=== PATIENT | female | born 1960 | race African-American/Black ===

== ENCOUNTER 2017-05-10 20:11 | Inpatient (IN) | payer OTHER ==
[2017-05-10] VITALS (11 sets, daily range): BP systolic 151–242; BP diastolic 71–138; PULSE 65–124; RESP 16–18; TEMP 97.9–98; O2SAT 95–99
[2017-05-10] MEDS ORDERED: SODIUM CHLOR 0.9% 1000 ML INJ 1,000 ML IV SCH (20:15)
[2017-05-10] MEDS ORDERED: LORazepam 2 MG/ML VIAL ONE (20:20)
[2017-05-10] MEDS ORDERED: niCARdipine INJ 25 MG in SODIUM CHLOR 0.9% 250 ML INJ 240 ML IV PRN ×2 (20:30→21:00)
[2017-05-10] MEDS ORDERED: LORazepam 2 MG/ML VIAL IV PUSH ONE ×2 (20:30→22:15)
[2017-05-10] MEDS ORDERED: IOHEXOL 350 MG/ML 10 ML VIAL (for RAD DIAG) IVCONTRAST ONE (20:32)
--- NOTE | 2017-05-10 20:35 | PD ---
HPI Chief Complaint: Stroke Alert Time Seen by Provider: 20:13 Travel History International Travel<30 days: No Contact w/Intl Traveler<30days: No (the patient's travel history is unable to be obtained.) History of Present Illness HPI The patient is a 50 year old female who presents to the [facility] emergency department with a history of expressive aphasia that began sometime prior to arrival. According to ambulance services the patient was last seen normal by her neighbors in her hotel at approximately 1900. The patient arrives approximately an hour after last being seen normal. The patient was noted to have a right facial droop. The patient had a blood sugar prior to arrival of 86. The patient was noted to be hypertensive with a blood pressure 230/136. The patient was not following commands, however she was spontaneously moving all extremities equally with 5 over 5 strength. As the patient has an expressive aphasia, no history is able to be obtained from the patient. Ambulance services had no other history for this patient. The patient was brought in under a [facility]. [facility] Past Medical History Narrative Medical The Patient's past medical history is unable to be obtained. Past Surgical History Narrative Surgical The patient's past surgical history is unable to be obtained. Social History Narrative Social History The patient's social history is unable to be obtained, however the patient does have a pack of cigarettes noted to be on her person. Alcohol Use: No Tobacco Use: Yes Substance Use: No Allergies-Medications (Allergen,Severity, Reaction): Coded Allergies: No Known Allergies (Unverified , 05/10/17) Reported Meds & Prescriptions Reported Meds & Active Scripts Active Active Prescriptions or Reported Medications Unobtainable Review of Systems ROS Limitations: Altered Mental Status, Speech Impaired, Poor Historian Neurologic: Positive: Weakness, Focal Abnormalities, Change in Mentation, Slurred Speech (expressive aphasia) Physical Exam Narrative General: The patient is a well-developed well-nourished female in no acute distress, on arrival is noted to be looking around the room, spontaneously moving all extremities, however not following any commands. Head and Neck exam: Head is normocephalic atraumatic. Eyes: Extra ocular motion testing is unable to be accomplished in this patient who is not following commands. Are equal round and reactive to light. Nose: Midline septum with pink mucous membranes Mouth: Dentition unremarkable. Moist mucus membranes. Posterior oropharynx is not able to be visualized as patient is clenching her mouth shut. Neck: No palpable lymphadenopathy. No nuchal rigidity. No thyromegaly. Cardiovascular: Regular rate and rhythm without murmurs, gallops, or rubs. No pulse deficit to the extremities on simultaneous auscultation and palpation of her radial artery. Lungs: Clear to auscultation bilaterally. No wheezes, rhonchi, or rales. Abdomen: Soft, without tenderness to palpation in all 4 quadrants of the abdomen. No guarding, rebound, or rigidity. Normal bowel sounds are audible. No tenderness on palpation of McBurney's point. Extremities: No clubbing, cyanosis, or edema. 2+ pulses in all 4 extremities. Back: No costovertebral angle tenderness to palpation. Neurologic Exam: The patient has a right-sided facial droop noted. The patient is uncooperative with formal neurologic testing, however she is moving has her eyes open and is moving her eyes with conjugate gaze around the room area she is spontaneously moving all extremities with 5 over 5 strength. She does have intact sensation over all dermatomes on examination. She is nonverbal. She adamantly will make sounds Skin Exam: No rash noted. Intact skin that is warm and dry. Data Data Last Documented VS Vital Signs Date Time Temp Pulse Resp B/P (MAP) Pulse Ox O2 Delivery O2 Flow Rate FiO2 05/10/17 20:15 93 100 Nasal Cannula 2.00 05/10/17 20:15 18 05/10/17 20:11 98.0 234/138 (170) Orders Orders Diet Npo (05/11/17 Breakfast) Activity Bed Rest (05/10/17 ) Electrocardiogram (05/10/17 ) I-Stat Creatinine (05/10/17 20:14) I-Stat Profile (05/10/17 20:14) Prothrombin Time / Inr (Pt) (05/10/17 20:14) Act Partial Throm Time (Ptt) (05/10/17 20:14) Complete Blood Count With Diff (05/10/17 20:14) Fibrinogen (05/10/17 20:14) Creatine Kinase (Cpk) (05/10/17 20:14) Troponin I (05/10/17 20:14) Ua Includes Microscopic (05/10/17 20:14) Type And Screen (05/10/17 20:14) Ct Brain W/O Iv Contrast(Rout) (05/10/17 ) Cta Brain W Iv Contrast W 3d (05/10/17 20:14) Cta Neck W Iv Contrast W 3d (05/10/17 20:14) Beta Hcg (Quant/Titer) (05/10/17 20:14) Consult Neurology (05/10/17 ) Blood Glucose (05/10/17 20:14) Ecg Monitoring (05/10/17 20:14) Neuro Checks Q2HX12,Q4H (05/10/17 20:14) Nursing Bedside Swallow Assess .ONCE (05/10/17 20:14) Iv Access Insert/Monitor (05/10/17 20:14) NPO (05/10/17 20:14) Oximetry (05/10/17 20:14) Oxygen Administration (05/10/17 20:14) Resp Oxygen Shyam C Titrat 1-4 L (05/10/17 20:14) Cath For Specimen (05/10/17 20:14) Sodium Chlor 0.9% 1000 Ml Inj (Ns 1000 M (05/10/17 20:15) Nicardipine Inj (Cardene Inj) (05/10/17 20:19) Lorazepam Inj (Ativan Inj) (05/10/17 20:20) Lorazepam Inj (Ativan Inj) (05/10/17 20:30) Nicardipine Inj (Cardene Inj) (05/10/17 20:30) Iohexol 350 Inj (Omnipaque 350 Inj) (05/10/17 20:32) Levetiracetam Inj (Keppra Inj) (05/10/17 20:45) Admit Order (Ed Use Only) (05/10/17 20:48) Consult Neurosurgery (05/10/17 ) Admit To Inpatient (05/10/17 ) Code Status (05/10/17 20:48) Vital Signs (Adult) GELY.Q1H (05/10/17 20:48) Activity Bed Rest (05/10/17 20:48) Elevate Head Of Bed (05/10/17 20:48) Neuro Checks . ORDERED (05/10/17 20:48) Sodium Chlor 0.9% 1000 Ml Inj (Ns 1000 M (05/10/17 20:48) Sodium Chloride 0.9% Flush (Ns Flush) (05/10/17 21:00) Sodium Chloride 0.9% Flush (Ns Flush) (05/10/17 21:00) Acetaminophen (Tylenol) (05/10/17 21:00) Morphine Inj (Morphine Inj) (05/10/17 21:00) Famotidine Inj (Pepcid Inj) (05/10/17 21:00) Famotidine (Pepcid) (05/10/17 21:00) Lorazepam Inj (Ativan Inj) (05/10/17 21:00) Albuterol-Ipratropium Neb (Duoneb Neb) (05/10/17 21:00) Complete Blood Count With Diff (05/11/17 04:00) Comprehensive Metabolic Panel (05/11/17 04:00) Prothrombin Time / Inr (Pt) (05/11/17 04:00) Magnesium (Mg) (05/11/17 04:00) Phosphorus (Po4) (05/11/17 04:00) Pt Request For Service (05/10/17 20:48) Buckle And Button Maker / Telemetry GELY.Q8H (05/10/17 20:48) Pharmacologic Contraindication (05/10/17 20:48) ^ Initiate Protocol (05/10/17 20:48) Instruction (05/10/17 20:48) [facility] Nursing Information (05/10/17 21:00) Chlorhexidine 2% Cloth (Chlorhexidine 2% (05/11/17 04:00) Chlorhexidine 2% Cloth (Chlorhexidine 2% (05/10/17 21:00) Mrsa Pcr Surveillance (05/10/17 20:48) Docusate Sodium-Senna (Edelmira-Colace) (05/10/17 21:00) Magnesium Hydroxide Liq (Milk Of Magnesi (05/10/17 21:00) Sennosides (Senokot) (05/10/17 21:00) Bisacodyl Supp (Dulcolax Supp) (05/10/17 21:00) Lactulose Liq (Lactulose Liq) (05/10/17 21:00) Inpatient Certification (05/10/17 ) Labs Laboratory Tests Test 05/10/17 20:14 White Blood Count 4.4 TH/MM3 Red Blood Count 3.75 MIL/MM3 Hemoglobin 11.6 GM/DL Bedside Hemoglobin 11.6 G/DL Hematocrit 34.7 % Bedside Hematocrit 34.0 % Mean Corpuscular Volume 92.4 FL Mean Corpuscular Hemoglobin 31.0 PG Mean Corpuscular Hemoglobin Concent 33.6 % Red Cell Distribution Width 13.7 % Platelet Count 216 TH/MM3 Mean Platelet Volume 7.8 FL Neutrophils (%) (Auto) 66.5 % Lymphocytes (%) (Auto) 24.7 % Monocytes (%) (Auto) 6.3 % Eosinophils (%) (Auto) 1.5 % Basophils (%) (Auto) 1.0 % Neutrophils # (Auto) 2.9 TH/MM3 Lymphocytes # (Auto) 1.1 TH/MM3 Monocytes # (Auto) 0.3 TH/MM3 Eosinophils # (Auto) 0.1 TH/MM3 Basophils # (Auto) 0.0 TH/MM3 CBC Comment DIFF FINAL Differential Comment Prothrombin Time 10.0 SEC Prothromb Time International Ratio 1.0 RATIO Activated Partial Thromboplast Time 20.4 SEC Fibrinogen 222 mg/dL Bedside Sodium 141 MMOL/L Bedside Potassium 4.2 MMOL/L Bedside Chloride 105 MMOL/L Bedside Blood Urea Nitrogen 18 MG/DL Bedside Creatinine 0.9 MG/DL Bedside Glucose 100 MG/DL Total Creatine Kinase 180 U/L Troponin I 0.02 NG/ML Human Chorionic Gonadotropin, Quant LESS THAN 1 MIU/ML MDM Medical Screen Exam Complete: Yes Emergency Medical Condition: Yes Medical Record Reviewed: No EKG Prior to Arrival: Yes Differential Diagnosis Ischemic stroke, versus intracranial hemorrhage, versus brain mass Narrative Course During the course of the patients emergency department visit, the patients history, examination, and differential diagnosis were reviewed with the patient. The patient was placed on a director of cardiac cath lab with oximetry and frequent blood pressure monitoring. The patient had IV access obtained and blood work sent for analysis. A stroke alert was called regarding this patient's case at 20:03. A CT scan of the head was ordered along with a CTA of the head and neck given the patient's expressive aphasia and her NIH score of 8. The patient was noted on arrival to have a blood pressure that was elevated in the 230s systolic , therefore the patient was immediately started on a Cardene drip. I accompanied the patient to CT. While in CT, the patient had a witnessed generalized clonic tonic seizure that lasted for approximately 2 minutes. The patient was given Ativan 1 mg IV. The patient was then loaded with Keppra 1 g IV. The patient in CT was noted to have an intracranial hemorrhage on the left side. The neurologist on-call for stroke alerts was notified regarding this. I then spoke to the neurosurgeon on-call regarding this patient's intracranial hemorrhage. He will see the patient consultation. He requested that the patient be admitted to the courtroom clerk service. He recommended blood pressure control of his systolic blood pressure between 110 and 140. The patient was placed on normal saline at 70 mL/h. The patient's head of the bevel be raised to 30. I then spoke to Dr. Hodgson the courtroom clerk on-call regarding this patient's case. He did agree to admit the patient for continued evaluation and treatment. The patients laboratory studies were reviewed and remarkable for a white count of 4.4, hemoglobin 11.6, platelets 216 with a normal differential, i-STAT is within normal limits with a creatinine of 0.9, CPK 180, troponin I 0.02, quantitative beta hCG is less than 1, PT 10, PTT 20.4, fibrinogen 222. Radiology studies were reviewed and remarkable for CTA of the brain showed a normal examination, CTA of the neck showed a normal examination according to the reading radiologist. The patient's intracranial hemorrhage is likely related to a hypertensive bleed. The patient's ECG reveals a sinus tachycardia rate of 101, QRS duration is 98 ms , QTC 402 ms with nonspecific T-wave abnormalities. No acute ST segment elevation. The patients results were discussed with the patient, including the plan of care. I explained that further testing and/ or monitoring is indicated based on the patients history, examination, and/ or laboratory findings. Therefore, I recommended admission for additional evaluation. The patient expressed understanding and was agreeable with this plan. The patient was admitted to the hospital in critical condition and sent to a bed under the care of the courtroom clerk service. Critical Care Narrative Aggregate critical care time was 35 minutes. Time to perform other separately billable procedures was not included in the critical care time. My time did not include minutes spent treating any other patients simultaneously or on activities that did not directly contribute to the patient's treatment. The services I provided to this patient were to treat and/or prevent clinically significant deterioration that could result in: Hypoxic brain injury, versus progressive disability, versus respiratory failure I provided critical care services requiring my management, as noted below: Chart data review, documentation time, medication orders and management, vital sign assessments/reviewing monitor data, ordering and reviewing lab tests, ordering and interpreting/reviewing x-rays and diagnostic studies, care of the patient and discussion of the patient with the admitting physicians. Stroke Alert NIHSS NIH Stroke Scale Result: 8 NIHSS Time Completed: 20:28 Thrombolytic Contraindications Contraindications: CT Intracranial Bleed Physician Communication Physician Communication The patient's case including history, pertinent physical examination findings, and laboratory studies were discussed with Dr. Jane at 8::32PM, Dr. Campbell at 8: 42PM., Dr Hodgson at 8: 45PM. It was agreed that the patient would be admitted to the courtroom clerk's service. Diagnosis Diagnosis: Primary Impression: Intracranial hemorrhage Admitting Physician Requests: Admit Scripts Unable to Obtain Active Prescriptions or Reported Meds Kia Aparicio MD May 10, 2017 20:35
--- NOTE | 2017-05-10 20:36 | RADRPT ---
EXAM DATE/TIME: 05/10/2017 20:19 [facility] COMPARISON: No previous studies available for comparison. INDICATIONS : Stroke alert, altered mental status and right sided facial droop. RADIATION DOSE: 27.95 CTDIvol (mGy) This report was called by myself to Dr. Aparicio at 20: 33 hours MEDICAL HISTORY : Non-responsive. SURGICAL HISTORY : Non-responsive. ENCOUNTER: Initial ACUITY: 1 day PAIN SCALE: Non-responsive LOCATION: Bilateral head TECHNIQUE: Multiple contiguous axial images were obtained of the head. Using automated exposure control and adj ustment of the mA and/or kV according to patient size, radiation dose was kept as low as reasonably a chievable to obtain optimal diagnostic quality images. DICOM format image data is available electro nically for review and comparison. FINDINGS: Approximately 2 cm acute hemorrhage is present in left anterior temporal lobe with slight edema surro unding it and no mass effect. There Is no evidence for intracranial mass effect, mass lesions, or ext ra-axial fluid collections. The visualized bony structures appear intact. The ventricles are normal size for the patient's age. CONCLUSION: Acute hemorrhage left anterior temporal lobe. Lala England MD on May 10, 2017 at 20:31 Board Certified Radiologist. This report was verified electronically.
[2017-05-10 20:43] LABS: AUTOMATED NEUTROPHIL # 2.9 TH/MM3 (1.8-7.7); EOSINOPHIL # 0.1 TH/MM3 (0-0.4); EOSINOPHIL % 1.5 % (0.0-4.0); HEMATOCRIT 34.7 % (35.0-46.0); HEMOGLOBIN 11.6 GM/DL (11.6-15.3); LYMPH % 24.7 % (9.0-44.0); LYMPHOCYTE # 1.1 TH/MM3 (1.0-4.8); MEAN CELL VOLUME 92.4 FL (80.0-100.0); MEAN CORPUSCULAR HGB CONC 33.6 % (32.0-36.0); MEAN PLATELET VOLUME 7.8 FL (7.0-11.0); MONO % 6.3 % (0.0-8.0); MONOCYTE # 0.3 TH/MM3 (0-0.9); NEUT % 66.5 % (16.0-70.0); PLATELET COUNT 216 TH/MM3 (150-450); RED BLOOD COUNT 3.75 MIL/MM3 (4.00-5.30); RED CELL DISTRIBUTION WIDTH 13.7 % (11.6-17.2); WHITE BLOOD COUNT 4.4 TH/MM3 (4.0-11.0)
[2017-05-10] MEDS ORDERED: levETIRAcetam INJ 100 ML IV ONE (20:45)
--- NOTE | 2017-05-10 20:58 | RADRPT ---
EXAM DATE/TIME: 05/10/2017 20:19 [facility] COMPARISON: CT BRAIN W/O CONTRAST, May 10, 2017, 20:19. INDICATIONS : Stroke alert, altered mental status and right sided facial droop. IV CONTRAST: 90 cc Omnipaque 350 (iohexol) IV ; Cumulative dose for multiple exams. RADIATION DOSE: 24.39 CTDIvol (mGy) ; Combined studies MEDICAL HISTORY : Non-responsive. SURGICAL HISTORY : Non-responsive. ENCOUNTER: Initial ACUITY: 1 day PAIN SCALE: Non-responsive LOCATION: Bilateral head TECHNIQUE: Volumetric scanning was performed using a multi-row detector CT scanner. The data was post processed with a variety of visualization algorithms including full volume maximum intensity projection, multi -planar sliding thin slab reformation, curved planar reformation, and surface rendering techniques. Using automated exposure control and adjustment of the mA and/or kV according to patient size, radiat ion dose was kept as low as reasonably achievable to obtain optimal diagnostic quality images. DICO M format image data is available electronically for review and comparison. FINDINGS: There is excellent visualization of the major intracranial arteries out to the second-order branch ve ssels. There is no evidence for aneurysm, vessel truncation or stenosis, and no evidence for vascula r malformation. CONCLUSION: Normal examination. Lala England MD on May 10, 2017 at 20:54 Board Certified Radiologist. This report was verified electronically.
[2017-05-10] MEDS: FAMOTIDINE 20 MG TAB PO SCH (21:00)
[2017-05-10] MEDS ORDERED: LABETALOL HCL 100 MG/20 ML VIAL IV PUSH PRN (21:00)
[2017-05-10] MEDS ORDERED: SENNOSIDES 8.6 MG TAB PO PRN (21:00)
[2017-05-10] MEDS: DOCUSATE SODIUM 50 MG/SENNA 8.6 MG TAB PO SCH (21:00)
[2017-05-10] MEDS ORDERED: BISACODYL 10 MG SUPP RECTAL PRN (21:00)
[2017-05-10] MEDS ORDERED: RESP: ALBUTEROL 2.5 MG/IPRATROPIUM 0.5 MG NEB (PRN) INH (21:00)
[2017-05-10] MEDS ORDERED: SODIUM CHLORIDE 0.9% FLUSH 10 ML FLUSH IV FLUSH PRN (21:00)
[2017-05-10] MEDS ORDERED: MISCELLANEOUS NURSING INFORMATION XX SCH (21:00)
[2017-05-10] MEDS: SODIUM CHLORIDE 0.9% FLUSH 10 ML FLUSH IV FLUSH SCH (21:00)
[2017-05-10] MEDS ORDERED: MAGNESIUM HYDROXIDE SUSP 30 ML CUP PO PRN (21:00)
[2017-05-10] MEDS ORDERED: CHLORHEXIDINE GLUCONATE 2 % 1 PACK (2 CLOTHS) TOP PRN (21:00)
[2017-05-10] MEDS ORDERED: LACTULOSE SYRUP 20 GM/30 ML CUP PO PRN (21:00)
--- NOTE | 2017-05-10 21:00 | RADRPT ---
EXAM DATE/TIME: 05/10/2017 20:19 [facility] COMPARISON: CTA BRAIN W 3D RECON, May 10, 2017, 20:19. CT BRAIN W/O CONTRAST, May 10, 2017, 20:19. INDICATIONS : Stroke alert, altered mental status and right sided facial droop. IV CONTRAST: 90 cc Omnipaque 350 (iohexol) IV RADIATION DOSE: 24.39 CTDIvol (mGy) ; Combined studies MEDICAL HISTORY : Non-responsive. SURGICAL HISTORY : Non-responsive. ENCOUNTER: Initial ACUITY: 1 day PAIN SCALE: Non-responsive LOCATION: Bilateral neck Elevated flow velocities and ICA/CCA ratios have been found to correlate with increased degrees of vessel stenosis, calculated as percentage of diameter relative to a normal segment of distal ICA/CCA. TECHNIQUE: Volumetric scanning was performed using a multirow detector CT scanner. The data was post processed with a variety of visualization algorithms including full-volume maximum intensity projection, multip lanar sliding thin-slab reformation, curved-planar reformation, and surface-rendering techniques. Us ing automated exposure control and adjustment of the mA and/or kV according to patient size, radiatio n dose was kept as low as reasonably achievable to obtain optimal diagnostic quality images. DICOM f ormat image data is available electronically for review and comparison. FINDINGS: AORTIC ARCH: There is a three-vessel origin of the great vessels from the aorta. No evidence of ostial narrowing. RIGHT CAROTID: The common carotid artery is intact. The carotid bulb has a normal configuration without ulceration o r narrowing. The internal carotid artery lumen is smooth without stenosis. The external carotid sandie ry is intact. LEFT CAROTID: The common carotid artery is intact. The carotid bulb has a normal configuration without ulceration or narrowing. The internal carotid artery lumen is smooth without stenosis. The external carotid ar maykel is intact. VERTEBRALS: The vertebral arteries have a symmetric diameter. No stenotic lesions are seen. CONCLUSION: Normal examination. Lala England MD on May 10, 2017 at 20:57 Board Certified Radiologist. This report was verified electronically.
[2017-05-10 21:04] LABS: TROPONIN I 0.02 NG/ML (0.02-0.05)
[2017-05-10] MEDS ORDERED: HALOPERIDOL LACTATE 5 MG/ML AMP ONE (21:29)
[2017-05-10] MEDS ORDERED: MANNITOL INJ 50 ML ONE ×2 (21:48→23:19)
[2017-05-10] MEDS: niCARdipine 25 MG/NS 250 ML Vial2Bag or IV room IV PRN ×4 (22:01→23:51)
[2017-05-10] MEDS: SODIUM CHLOR 0.9% 1000 ML INJ 1,000 ML IV SCH (22:04)
[2017-05-10] MEDS ORDERED: HALOPERIDOL LACTATE 5 MG/ML AMP IV PUSH ONE (22:15)
[2017-05-10] MEDS ORDERED: MANNITOL 12.5 GM/50 ML VIAL IV ONE (22:15)
--- NOTE | 2017-05-10 22:29 | HHI.HP ---
HPI Service Critical Care Medicine Primary Care Physician Unknown Admission Diagnosis L parietal intracranial hemorrhage Diagnosis: Travel History International Travel<30 Days: No Contact w/Intl Traveler <30 Da: No (the patient's travel history is unable to be obtained.) Traveled to Known Affected Are: No History of Present Illness 50 year old female admitted as a stroke alert due to a history of expressive aphasia that began sometime prior to arrival. According to ambulance services the patient was last seen normal by her neighbors in her hotel at approximately 1900. The patient was noted to have a right facial droop, was noted to be hypertensive with a blood pressure 230/136. The patient was not following commands, however she was spontaneously moving all extremities equally with 5 over 5 strength. As the patient has an expressive aphasia, no history is able to be obtained from the patient. CAT scan of the head revealed acute hemorrhagic stroke in the left anterior temporal lobe. While in the CAT scan for CTA the patient suffered 1 episode of generalized tonic-clonic seizure. Review of Systems ROS Unobtainable patient is aphasic also post ictal Past Family Social History Allergies: Coded Allergies: No Known Allergies (Unverified , 05/10/17) Past Medical History Unobtainable Past Surgical History Unobtainable Reported Medications Reported Meds & Active Scripts Active Active Prescriptions or Reported Medications Unobtainable Active Ordered Medications Current Medications Medications (Trade) Dose Ordered Sig/Areli Route PRN Reason Start Time Stop Time Status Last Admin Dose Admin Sodium Chloride 1,000 ml @ 84 mls/hr [id number] IV 05/10/17 20:48 05/10/17 22:04 Sodium Chloride (NS Flush) 2 ml UNSCH PRN IV FLUSH FLUSH AFTER USING IV ACCESS 05/10/17 21:00 Sodium Chloride (NS Flush) 2 ml BID IV FLUSH 05/10/17 21:00 Acetaminophen (Tylenol) 650 mg Q6H PRN PO PAIN 1-5 AND/OR FEVER >101F 05/10/17 21:00 Morphine Sulfate (Morphine Inj) 2 mg Q2H PRN IV PUSH PAIN SCALE 6 TO 10 05/10/17 21:45 Famotidine (Pepcid Inj) 20 mg Q12HR IV PUSH 05/10/17 21:00 Famotidine (Pepcid) 20 mg Q12HR PO 05/10/17 21:00 Lorazepam (Ativan Inj) 1 mg Q1H PRN IV PUSH Seizure 05/10/17 21:00 Albuterol/ Ipratropium (Duoneb Neb) 1 ampule Q2HR NEB PRN INH WHEEZING 05/10/17 21:00 Miscellaneous Information 1 [id number] XX 05/10/17 21:00 Chlorhexidine Gluconate (Chlorhexidine 2% Cloth) 3 pack Taper DAILY@04 TOP 05/11/17 04:00 05/07/18 03:59 Chlorhexidine Gluconate (Chlorhexidine 2% Cloth) 3 pack UNSCH PRN TOP HYGIENIC CARE 05/10/17 21:00 Senna/Docusate Sodium ([place]ira-Colace) 1 tab BID PO 05/10/17 21:00 Magnesium Hydroxide (Milk Of Magnesia Liq) 30 ml Q12H PRN PO Mild constipation 05/10/17 21:00 Sennosides (Senokot) 17.2 mg Q12H PRN PO Moderate constipation 05/10/17 21:00 Bisacodyl (Dulcolax Supp) 10 mg DAILY PRN RECTAL SEVERE CONSITIPATION 05/10/17 21:00 Lactulose (Lactulose Liq) 30 ml DAILY PRN PO SEVERE CONSITIPATION 05/10/17 21:00 Labetalol HCl (Trandate Inj) 10 mg Q4H PRN IV PUSH SBP>140, DBP>90 05/10/17 21:00 Hydralazine HCl (Apresoline Inj) 20 mg Q4H PRN IV PUSH SBP>140, DBP>90 05/10/17 21:00 Levetriacetam 100 ml @ 400 mls/hr Q12HR IV 05/10/17 21:00 Nicardipine HCl 25 mg/Sodium Chloride 250 ml @ 50 mls/hr TITRATE PRN IV Blood Pressure Management 05/10/17 21:45 05/10/17 22:01 Lorazepam (Ativan Inj) 2 mg ONCE ONCE IV PUSH 05/10/17 22:15 05/10/17 22:16 UNV Haloperidol Lactate (Haldol Inj) 5 mg ONCE ONCE IV PUSH 05/10/17 22:15 05/10/17 22:16 UNV Mannitol (Mannitol Inj) 50 gm ONCE ONCE IV 05/10/17 22:15 05/10/17 22:16 UNV Family History Unobtainable Social History Unobtainable Physical Exam Vital Signs Vital Signs Date Time Temp Pulse Resp B/P (MAP) Pulse Ox O2 Delivery O2 Flow Rate FiO2 05/10/17 22:01 90 234/138 05/10/17 20:15 93 100 Nasal Cannula 2.00 05/10/17 20:15 90 18 97 Nasal Cannula 2.00 05/10/17 20:15 99 Nasal Cannula 2.00 05/10/17 20:11 98.0 90 16 234/138 (170) 99 05/10/17 20:10 99 3.00 05/10/17 20:10 99 Nasal Cannula 3.00 Physical Exam GENERAL: Well-nourished, well-developed patient. SKIN: Warm and dry. HEAD: Normocephalic. EYES: No scleral icterus. No injection or drainage. NECK: Supple, trachea midline. No JVD or lymphadenopathy. CARDIOVASCULAR: Regular rate and rhythm without murmurs, gallops, or rubs. RESPIRATORY: Breath sounds equal bilaterally. No accessory muscle use. GASTROINTESTINAL: Abdomen soft, non-tender, nondistended. MUSCULOSKELETAL: No cyanosis, or edema. BACK: Nontender without obvious deformity. NEURO EXAM: The patient has a right-sided facial droop. She is uncooperative with formal neurologic testing, however she is moving has her eyes open and is moving her eyes with conjugate gaze around the room area she is spontaneously moving all extremities with 5 over 5 strength. She is nonverbal. She adamantly will make sounds Laboratory Laboratory Tests Test 05/10/17 20:14 White Blood Count 4.4 Red Blood Count 3.75 Hemoglobin 11.6 Bedside Hemoglobin 11.6 Hematocrit 34.7 Bedside Hematocrit 34.0 Mean Corpuscular Volume 92.4 Mean Corpuscular Hemoglobin 31.0 Mean Corpuscular Hemoglobin Concent 33.6 Red Cell Distribution Width 13.7 Platelet Count 216 Mean Platelet Volume 7.8 Neutrophils (%) (Auto) 66.5 Lymphocytes (%) (Auto) 24.7 Monocytes (%) (Auto) 6.3 Eosinophils (%) (Auto) 1.5 Basophils (%) (Auto) 1.0 Neutrophils # (Auto) 2.9 Lymphocytes # (Auto) 1.1 Monocytes # (Auto) 0.3 Eosinophils # (Auto) 0.1 Basophils # (Auto) 0.0 CBC Comment DIFF FINAL Differential Comment Prothrombin Time 10.0 Prothromb Time International Ratio 1.0 Activated Partial Thromboplast Time 20.4 Fibrinogen 222 Bedside Sodium 141 Bedside Potassium 4.2 Bedside Chloride 105 Bedside Blood Urea Nitrogen 18 Bedside Creatinine 0.9 Bedside Glucose 100 Total Creatine Kinase 180 Troponin I 0.02 Human Chorionic Gonadotropin, Quant LESS THAN 1 Result Diagram: 05/10/172013 Imaging Last 24 hours Impressions Neck CTA 05/10/172013 Signed Impressions: Service Date/Time: Wednesday, May 10, 2017 20:19 - CONCLUSION: Normal examination. Lala England MD Head CTA 05/10/172013 Signed Impressions: Service Date/Time: Wednesday, May 10, 2017 20:19 - CONCLUSION: Normal examination. Lala England MD Head CT 05/10/17 Signed Impressions: Service Date/Time: Wednesday, May 10, 2017 20:19 - CONCLUSION: Acute hemorrhage left anterior temporal lobe. Lala England MD Septic Shock Reassessment Septic shock perfusion: reassessment completed Caprini VTE Risk Assessment Caprini VTE Risk Assessment: Mod/High Risk (score >= 2) VTE Pharm Contraindication: Hemorrhage Caprini Risk Assessment Model Point Value = 1 Point Value = 2 Point Value = 3 Point Value = 5 Age 41-60 Minor surgery BMI > 25 kg/m2 Swollen legs Varicose veins or History of unexplained or recurrent spontaneous Oral contraceptives or hormone replacement Sepsis (< 1 month) Serious lung disease, including pneumonia (< 1 month) Abnormal pulmonary function Acute myocardial infarction Congestive heart failure (< 1 month) History of inflammatory bowel disease Medical patient at bed rest Age 61-74 Arthroscopic surgery Major open surgery (> 45 min) Laparoscopic surgery (> 45 min) Malignancy Confined to bed (> 72 hours) Immobilizing plaster cast Central venous access Age >= 75 History of VTE Family history of VTE Factor V Leiden Prothrombin [id number] Lupus anticoagulant Anticardiolipin antibodies Elevated serum homocysteine Heparin-induced thrombocytopenia Other congenital or acquired thrombophilia Stroke (< 1 month) Elective arthroplasty Hip, pelvis, or leg fracture Acute spinal cord injury (< 1 month) Prophylaxis Regimen Total Risk Factor Score Risk Level Prophylaxis Regimen 0-1 Low Early ambulation 2 Moderate Order ONE of the following: *Sequential Compression Device (SCD) *Heparin 5000 units SQ BID 3-4 Higher Order ONE of the following medications: *Heparin 5000 units SQ TID *Enoxaparin/Lovenox 40 mg SQ daily (WT < 150 kg, CrCl > 30 mL/min) *Enoxaparin/Lovenox 30 mg SQ daily (WT < 150 kg, CrCl > 10-29 mL/min) *Enoxaparin/Lovenox 30 mg SQ BID (WT < 150 kg, CrCl > 30 mL/min) AND/OR *Sequential Compression Device (SCD) 5 or more Highest Order ONE of the following medications: *Heparin 5000 units SQ TID (Preferred with Epidurals) *Enoxaparin/Lovenox 40 mg SQ daily (WT < 150 kg, CrCl > 30 mL/min) *Enoxaparin/Lovenox 30 mg SQ daily (WT < 150 kg, CrCl > 10-29 mL/min) *Enoxaparin/Lovenox 30 mg SQ BID (WT < 150 kg, CrCl > 30 mL/min) AND *Sequential Compression Device (SCD) Assessment and Plan Assessment and Plan Hemorrhagic stroke - Due to uncontrolled hypertension - No surgical intervention indicated at this time - Mannitol 1 g/kg IV 1 - Coags profile pending - SBP goal less than 140 - Neuro checks per unit protocol - Drug screen pending - PT and OT eval and treat as tolerated Seizure - Due to above - Keppra loaded in the ED - Continue Keppra 1 g every 12 hours - Ativan when necessary Hypertension - Nicardipine drip - Labetalol and hydralazine when necessary to keep SBP less than 140 DVT GI prophylaxis - Teds SCDs - No pharmacological DVT prophylaxis due to acute ICH - Pepcid Critical Care: The total critical care time was 35 minutes. Time to perform other separately billable procedures was not included in the critical care time. Ge Hodgson MD May 10, 2017 10:28 pm
[2017-05-10 22:57] LABS: BILIRUBIN, URINE NEG (NEG); BLOOD, URINE TRACE (NEG); GLUCOSE,URINE NEG (NEG); KETONE, URINE NEG (NEG); MUCUS URINE FEW /lpf (OCC); NITRITE,URINE NEG (NEG); URINE COLOR COLORLESS (YELLW/STRAW); URINE LEUKOCYTE ESTERASE NEG (NEG)
--- NOTE | 2017-05-10 23:19 | PD.CONS ---
History of Present Illness Service Neurosurgery Consult Requested By Behavioral Assistant Reason for Consult Intracranial hemorrhage Primary Care Physician Unknown Diagnoses: History of Present Illness This 50-year-old female was brought by EMS to the emergency room as a stroke alert after she experienced speech difficulty with expressive aphasia sometime after 7 PM this evening. She had an initial blood pressure of 2:30/136. In the emergency room she was awake with fluctuating level of consciousness. Initially nonverbal then occasionally saying some words but not following commands. Patient had a tonic-clonic seizure episode while in the CT scanning suite. No emesis reported. Review of Systems Unable to obtain review of systems from the patient due to altered mental status. Past Family Social History Allergies: Coded Allergies: No Known Allergies (Unverified , 05/10/17) Past Medical History Unable to obtain past medical, social, surgical history of medications from the patient due to altered mental status. No family available at the time of initial evaluation. Physical Exam Vital Signs Vital Signs Date Time Temp Pulse Resp B/P (MAP) Pulse Ox O2 Delivery O2 Flow Rate FiO2 05/10/17 22:30 84 16 151/71 (97) 98 2.00 05/10/17 22:01 90 234/138 05/10/17 22:00 96 16 157/75 (102) 95 2.00 05/10/17 21:30 106 16 168/103 (124) 95 2.00 05/10/17 21:15 124 18 183/101 (128) 97 2.00 05/10/17 21:00 104 18 170/109 (129) 97 2.00 05/10/17 20:45 65 16 242/121 (161) 97 2.00 05/10/17 20:20 98.0 90 16 234/134 (167) 97 2.00 05/10/17 20:15 93 100 Nasal Cannula 2.00 05/10/17 20:15 90 18 97 Nasal Cannula 2.00 05/10/17 20:15 99 Nasal Cannula 2.00 05/10/17 20:11 98.0 90 16 234/138 (170) 99 05/10/17 20:10 99 3.00 05/10/17 20:10 99 Nasal Cannula 3.00 Physical Exam GENERAL: Within normal developed lady, agitated. SKIN: No abrasions, contusion, rash noted. Skin warm and dry. HEAD: Atraumatic. Normocephalic. No temporal or scalp tenderness. EYES: Sclerae are clear and nonicteric ENT: No facial edema or ecchymosis. No periorbital edema. No CSF otorrhea or rhinorrhea. No palpable facial fracture or deformity. NECK: Trachea midline. No cervical spine tenderness. CARDIOVASCULAR: Regular rate and rhythm without murmurs, gallops, or rubs. RESPIRATORY: Clear to auscultation. Breath sounds equal bilaterally. No wheezes , rales, or rhonchi. GASTROINTESTINAL: Abdomen soft, non-tender, nondistended. No hepato-splenomegaly , or palpable masses. No guarding. MUSCULOSKELETAL: Extremities without cyanosis, or edema. No joint tenderness, or edema noted. No calf tenderness. Dorsalis pedis pulses 2+ bilateral NEUROLOGICAL: Awake and alert She has rather severe dysarthria. She will tell me her name with barely intelligible speech. She will occasionally shout out people's names. She will track to the left greater than right with conjugate gaze and response to voice. She will grasp her left greater than right hand and move lower extremities to command. Pupils are equal and reactive to accommodation. She has mild right facial asymmetry. Remainder cranial nerve testing cannot be fully completed due to altered mental status Brennen's absent bilaterally No ankle clonus Plantar responses absent bilateral Fine motor movements cannot be fully evaluated due to altered mental status Laboratory Laboratory Tests Test 05/10/17 20:14 05/10/17 21:50 White Blood Count 4.4 Red Blood Count 3.75 Hemoglobin 11.6 Bedside Hemoglobin 11.6 Hematocrit 34.7 Bedside Hematocrit 34.0 Mean Corpuscular Volume 92.4 Mean Corpuscular Hemoglobin 31.0 Mean Corpuscular Hemoglobin Concent 33.6 Red Cell Distribution Width 13.7 Platelet Count 216 Mean Platelet Volume 7.8 Neutrophils (%) (Auto) 66.5 Lymphocytes (%) (Auto) 24.7 Monocytes (%) (Auto) 6.3 Eosinophils (%) (Auto) 1.5 Basophils (%) (Auto) 1.0 Neutrophils # (Auto) 2.9 Lymphocytes # (Auto) 1.1 Monocytes # (Auto) 0.3 Eosinophils # (Auto) 0.1 Basophils # (Auto) 0.0 CBC Comment DIFF FINAL Differential Comment Prothrombin Time 10.0 Prothromb Time International Ratio 1.0 Activated Partial Thromboplast Time 20.4 Fibrinogen 222 Bedside Sodium 141 Bedside Potassium 4.2 Bedside Chloride 105 Bedside Blood Urea Nitrogen 18 Bedside Creatinine 0.9 Bedside Glucose 100 Total Creatine Kinase 180 Troponin I 0.02 Human Chorionic Gonadotropin, Quant LESS THAN 1 Urine Color COLORLESS Urine Turbidity CLEAR Urine pH 8.0 Urine Specific [place] 1.016 Urine Protein 30 Urine Glucose (UA) NEG Urine Ketones NEG Urine Occult Blood TRACE Urine Nitrite NEG Urine Bilirubin NEG Urine Urobilinogen LESS THAN 2.0 Urine Leukocyte Esterase NEG Urine RBC 1 Urine WBC LESS THAN 1 Urine Mucus FEW Urine Opiates Screen NEG Urine Barbiturates Screen NEG Urine Amphetamines Screen NEG Urine Benzodiazepines Screen NEG Urine Cocaine Screen NEG Urine Cannabinoids Screen NEG Result Diagram: 05/10/172013 Imaging 05/10/2017 CT scan of the head and CT angiogram of the head and neck images are reviewed by the undersigned. No significant vascular abnormality on CTA. CT scan reveals an acute , approximately 2 cm left mid temporal subcortical parenchymal intracranial hemorrhage without significant mass effect. Neck CTA 05/10/172013 Signed Impressions: Service Date/Time: Wednesday, May 10, 2017 20:19 - CONCLUSION: Normal examination. Lala England MD Head CTA 05/10/172013 Signed Impressions: Service Date/Time: Wednesday, May 10, 2017 20:19 - CONCLUSION: Normal examination. Lala England MD Head CT 05/10/17 Signed Impressions: Service Date/Time: Wednesday, May 10, 2017 20:19 - CONCLUSION: Acute hemorrhage left anterior temporal lobe. Lala England MD Assessment and Plan Assessment and Plan Impression: 1. Left temporal intracranial hemorrhage. Likely related to hypertension 2. Hypertension Recommendations Patient has been admitted to the intensive surgical care unit for close neurologic checks and vital signs. Blood pressure initially controlled with nicardipine drip. Additional when necessary medications ordered. Remain nothing by mouth at present. She presently appears to be controlling her airway adequately. Follow-up CT scan head 05/11/17 Non-chemical DVT prophylaxis Ulcer prophylaxis Seizures-already loaded with Kepardeepra in the emergency room Siva Campbell MD May 10, 2017 23:19
[2017-05-10] MEDS: levETIRAcetam INJ 100 ML IV SCH (23:23)
[2017-05-10] MEDS: FAMOTIDINE 20 MG/2 ML VIAL IV PUSH SCH (23:24)
[2017-05-10] MEDS: hydrALAZINE HCL 20 MG/ML VIAL IV PUSH PRN (23:32)
[2017-05-11] VITALS (13 sets, daily range): BP systolic 123–136; BP diastolic 70–81; PULSE 71–98; RESP 16–20; TEMP 97.8–99.8; O2SAT 92–98
[2017-05-11] MEDS: MORPHINE SULFATE 2 MG/ML INJ IV PUSH PRN ×3 (01:00→21:20)
[2017-05-11] MEDS ORDERED: HALOPERIDOL LACTATE 5 MG/ML AMP IV ONE (01:15)
[2017-05-11] MEDS ORDERED: LORazepam 2 MG/ML VIAL IV ONE (01:15)
[2017-05-11] MEDS ORDERED: diphenhydrAMINE HCL 50 MG/ML VIAL IV ONE (01:15)
[2017-05-11] MEDS: CHLORHEXIDINE GLUCONATE 2 % 1 PACK (2 CLOTHS) TOP SCH (02:20)
[2017-05-11 05:24] LABS: AUTOMATED NEUTROPHIL # 6.6 TH/MM3 (1.8-7.7); BASOPHIL % 0.2 % (0.0-2.0); HEMATOCRIT 31.8 % (35.0-46.0); HEMOGLOBIN 10.8 GM/DL (11.6-15.3); LYMPHOCYTE # 0.9 TH/MM3 (1.0-4.8); MEAN CELL VOLUME 92.8 FL (80.0-100.0); MEAN CORPUSCULAR HEMOGLOBIN 31.5 PG (27.0-34.0); MEAN CORPUSCULAR HGB CONC 33.9 % (32.0-36.0); MONO % 6.3 % (0.0-8.0); MONOCYTE # 0.5 TH/MM3 (0-0.9); NEUT % 82.5 % (16.0-70.0); PLATELET COUNT 231 TH/MM3 (150-450); RED BLOOD COUNT 3.43 MIL/MM3 (4.00-5.30); RED CELL DISTRIBUTION WIDTH 13.6 % (11.6-17.2)
[2017-05-11 05:29] LABS: PROTHROMBIN TIME - PATIENT 10.4 SEC (9.8-11.6)
[2017-05-11 05:46] LABS: ALBUMIN 3.5 GM/DL (3.4-5.0); AST (GOT) 20 U/L (15-37); BICARBONATE 26.6 MEQ/L (21.0-32.0); BLOOD UREA NITROGEN 13 MG/DL (7-18); CALCIUM 8.2 MG/DL (8.5-10.1); CHLORIDE 113 MEQ/L (98-107); CREATININE 0.68 MG/DL (0.50-1.00); GLOMERULAR FILTRATION RATE 75 ML/MIN (>89); GLUCOSE,RANDOM 100 MG/DL (74-106); MAGNESIUM 2.1 MG/DL (1.5-2.5); SODIUM (NA) 146 MEQ/L (136-145)
[2017-05-11 05:50] LABS: ALKALINE PHOSPHATASE 91 U/L (45-117); ALT (GPT) 22 U/L (10-53); PHOSPHORUS 3.2 MG/DL (2.5-4.9); TOTAL BILIRUBIN ADULT 0.5 MG/DL (0.2-1.0); TOTAL PROTEIN 6.4 GM/DL (6.4-8.2)
[2017-05-11] MEDS: SODIUM CHLOR 0.9% 1000 ML INJ 1,000 ML IV SCH ×2 (06:07→19:56)
[2017-05-11] MEDS: FAMOTIDINE 20 MG TAB PO SCH ×2 (07:41→19:51)
[2017-05-11] MEDS: DOCUSATE SODIUM 50 MG/SENNA 8.6 MG TAB PO SCH ×2 (07:41→19:57)
[2017-05-11] MEDS: SODIUM CHLORIDE 0.9% FLUSH 10 ML FLUSH IV FLUSH SCH ×2 (07:42→19:56)
[2017-05-11] MEDS: FAMOTIDINE 20 MG/2 ML VIAL IV PUSH SCH ×2 (08:09→19:56)
[2017-05-11] MEDS: levETIRAcetam INJ 100 ML IV SCH ×2 (08:09→19:56)
--- NOTE | 2017-05-11 08:47 | HHI.CCPN ---
Subjective Remarks/Hospital Course 50 year old female admitted as a stroke alert due to a history of expressive aphasia that began sometime prior to arrival. According to ambulance services the patient was last seen normal by her neighbors in her hotel at approximately 1900. The patient was noted to have a right facial droop, was noted to be hypertensive with a blood pressure 230/136. The patient was not following commands, however she was spontaneously moving all extremities equally with 5 over 5 strength. As the patient has an expressive aphasia, no history is able to be obtained from the patient. CAT scan of the head revealed acute hemorrhagic stroke in the left anterior temporal lobe. While in the CAT scan for CTA the patient suffered 1 episode of generalized tonic-clonic seizure. 05/11: Hypertensive parenchymal bleed left temporal lobe, no underlying mass seen. Still unidentified patient; remains confused. Grossly moves 4 limbs. Talks nonsense intermittently. Objective Vital Signs Date Time Temp Pulse Resp B/P (MAP) Pulse Ox O2 Delivery O2 Flow Rate FiO2 05/11/17 07:45 97 Nasal Cannula 1.00 05/11/17 06:32 82 109/68 05/11/17 04:00 97.8 19 Intake and Output 05/11/17 05/11/17 05/12/17 08:00 16:00 00:00 Intake Total 1369 ml Output Total 2450 ml Balance -1081 ml Result Diagram: 05/11/17 0419 05/11/17 0419 Imaging Last 24 hours Impressions Neck CTA 05/10/172013 Signed Impressions: Service Date/Time: Wednesday, May 10, 2017 20:19 - CONCLUSION: Normal examination. Lala England MD Head CTA 05/10/172013 Signed Impressions: Service Date/Time: Wednesday, May 10, 2017 20:19 - CONCLUSION: Normal examination. Lala England MD Head CT 05/10/17 0000 Signed Impressions: Service Date/Time: Wednesday, May 10, 2017 20:19 - CONCLUSION: Acute hemorrhage left anterior temporal lobe. Lala England MD Objective Remarks GENERAL: Well-nourished, well-developed patient. SKIN: Warm and dry. HEAD: Normocephalic. EYES: No scleral icterus. No injection or drainage. NECK: Supple, trachea midline. Airway widely patent. CARDIOVASCULAR: Regular rate and rhythm without murmurs, gallops, or rubs. No JVD. RESPIRATORY: Breath sounds equal bilaterally. No accessory muscle use. GASTROINTESTINAL: Abdomen soft, non-tender, nondistended. BS active. MUSCULOSKELETAL: No cyanosis, or edema. Well perfused. NEURO EXAM: The patient has a right-sided facial droop. Uncooperative with formal neurologic testing, however she is moving. Her eyes open and is moving her eyes with conjugate gaze around the room area she is spontaneously moving all extremities with 5 over 5 strength. She is nonverbal but intermittently will make sounds A/P Assessment and Plan Hemorrhagic stroke - Due to uncontrolled hypertension - No surgical intervention indicated at this time - Mannitol 1 g/kg IV 1 - Coags profile pending - SBP goal less than 140 - Neuro checks per unit protocol - Drug screen pending - PT and OT eval and treat as tolerated Seizure - Due to above - Keppra loaded in the ED - Continue Keppra 1 g every 12 hours - Ativan when necessary Hypertension - Nicardipine drip - Labetalol and hydralazine when necessary to keep SBP less than 140 DVT GI prophylaxis - Teds SCDs - No pharmacological DVT prophylaxis due to acute ICH - Pepcid Overall impression: Confusion appears out of context in view of location of bleed. Hypertensive encephalopathy probably operative. BP control acceptable. Repeat CT pending. Raúl Britton MD May 11, 2017 08:47
--- NOTE | 2017-05-11 09:26 | HHI.NSPN ---
(Jeronimo Williamsonisabela LACKEY) History Chief Complaint: None (Kwadwo Williamson DARYA) Interval History 05/10: This 50-year-old female was brought by EMS to the emergency room as a stroke alert after she experienced speech difficulty with expressive aphasia sometime after 7 PM this evening. She had an initial blood pressure of 2:30/ 136. In the emergency room she was awake with fluctuating level of consciousness. Initially nonverbal then occasionally saying some words but not following commands. Patient had a tonic-clonic seizure episode while in the CT scanning suite. No emesis reported. 05/10: When seen this morning the patient is asleep. She does awaken to voice, answering questions and interacting. She denies any headache, dizziness or nausea at this time. She does state that she does have visual problems and is not able to see well without her glasses. She does endorse some numbness at times to the lower extremities. She is in 4-point soft restraints. She is maintaining her own airway without any difficulty. (Jeronimo Williamsonisabela LACKEY) Exam Results 05/09/17 05/09/17 05/10/17 05/10/17 05/11/17 05/11/17 06:00 18:00 06:00 18:00 06:00 18:00 Intake Total 1369 ml Output Total 2450 ml Balance -1081 ml Intake IV Total 1369 ml Output Urine Total 2450 ml Vital Signs Date Time Temp Pulse Resp B/P (MAP) Pulse Ox O2 Delivery O2 Flow Rate FiO2 05/11/17 07:45 97 Nasal Cannula 1.00 05/11/17 07:00 98 Nasal Cannula 2.00 05/11/17 06:32 82 109/68 05/11/17 06:00 79 05/11/17 04:00 80 05/11/17 04:00 97.8 78 19 123/73 (90) 96 05/11/17 03:04 78 137/81 05/11/17 02:00 79 05/11/17 01:59 82 92/56 05/11/17 00:00 97.9 95 18 124/77 (93) 92 05/11/17 00:00 94 05/10/17 23:51 100 129/76 05/10/17 23:00 97.9 92 18 169/96 (120) 97 05/10/17 23:00 92 05/10/17 22:30 84 16 151/71 (97) 98 2.00 05/10/17 22:01 90 234/138 05/10/17 22:00 96 16 157/75 (102) 95 2.00 05/10/17 21:30 106 16 168/103 (124) 95 2.00 05/10/17 21:15 124 18 183/101 (128) 97 2.00 05/10/17 21:00 104 18 170/109 (129) 97 2.00 05/10/17 20:45 65 16 242/121 (161) 97 2.00 05/10/17 20:20 98.0 90 16 234/134 (167) 97 2.00 05/10/17 20:15 93 100 Nasal Cannula 2.00 05/10/17 20:15 90 18 97 Nasal Cannula 2.00 05/10/17 20:15 99 Nasal Cannula 2.00 05/10/17 20:11 98.0 90 16 234/138 (170) 99 05/10/17 20:10 99 3.00 05/10/17 20:10 99 Nasal Cannula 3.00 (Kwadwo Williamson) Physical Examination GENERAL: Asleep but awakens to voice, answers questions and interacts. Affect flat. No apparent distress. HEENT: Normocephalic, atraumatic. PERRLA 2mm brisk, EOMI. No otorrhea or rhinorrhea. MMM & pink, tongue midline to protrusion. MUSCULOSKELETAL: FRANCISCO to command, NTTP, no evident deformity or clubbing. NEUROLOGICAL: Asleep, awakens to voice, answers questions & interacts, but does drift back off to sleep. She is oriented to person, being in the hospital, that it is 2016 but thought it was May. She will briefly open her eyes to voice. Her speech is fairly clear but muffled. She is slow to respond to questions and does exhibit difficulty finding words. There is a right-sided facial droop, o/w CN II-XII appear grossly intact. She does move all extremities to command. The upper extremities she are weak, right more so than the left. The lower extremities she moves equally and are strong. No Rojas's bilaterally. No ankle clonus bilaterally. Neutral plantar response bilaterally. (Kwadwo Williamson) Lab, Micro, Other Results Recent Impressions Neck CTA 05/10/172013 Signed Impressions: Service Date/Time: Wednesday, May 10, 2017 20:19 - CONCLUSION: Normal examination. Lala England MD Head CTA 05/10/172013 Signed Impressions: Service Date/Time: Wednesday, May 10, 2017 20:19 - CONCLUSION: Normal examination. Lala England MD Head CT 05/10/17 Signed Impressions: Service Date/Time: Wednesday, May 10, 2017 20:19 - CONCLUSION: Acute hemorrhage left anterior temporal lobe. Lala England MD Laboratory Tests Test 05/10/17 20:14 05/10/17 21:50 05/10/17 23:00 05/11/17 04:19 White Blood Count 4.4 TH/MM3 8.0 TH/MM3 Red Blood Count 3.75 MIL/MM3 3.43 MIL/MM3 Hemoglobin 11.6 GM/DL 10.8 GM/DL Bedside Hemoglobin 11.6 G/DL Hematocrit 34.7 % 31.8 % Bedside Hematocrit 34.0 % Mean Corpuscular Volume 92.4 FL 92.8 FL Mean Corpuscular Hemoglobin 31.0 PG 31.5 PG Mean Corpuscular Hemoglobin Concent 33.6 % 33.9 % Red Cell Distribution Width 13.7 % 13.6 % Platelet Count 216 TH/MM3 231 TH/MM3 Mean Platelet Volume 7.8 FL 8.0 FL Neutrophils (%) (Auto) 66.5 % 82.5 % Lymphocytes (%) (Auto) 24.7 % 11.0 % Monocytes (%) (Auto) 6.3 % 6.3 % Eosinophils (%) (Auto) 1.5 % 0.0 % Basophils (%) (Auto) 1.0 % 0.2 % Neutrophils # (Auto) 2.9 TH/MM3 6.6 TH/MM3 Lymphocytes # (Auto) 1.1 TH/MM3 0.9 TH/MM3 Monocytes # (Auto) 0.3 TH/MM3 0.5 TH/MM3 Eosinophils # (Auto) 0.1 TH/MM3 0.0 TH/MM3 Basophils # (Auto) 0.0 TH/MM3 0.0 TH/MM3 CBC Comment DIFF FINAL DIFF FINAL Differential Comment Prothrombin Time 10.0 SEC 10.4 SEC Prothromb Time International Ratio 1.0 RATIO 1.0 RATIO Activated Partial Thromboplast Time 20.4 SEC Fibrinogen 222 mg/dL Bedside Sodium 141 MMOL/L Bedside Potassium 4.2 MMOL/L Bedside Chloride 105 MMOL/L Bedside Blood Urea Nitrogen 18 MG/DL Bedside Creatinine 0.9 MG/DL Bedside Glucose 100 MG/DL Total Creatine Kinase 180 U/L Troponin I 0.02 NG/ML Human Chorionic Gonadotropin, Quant LESS THAN 1 MIU/ML Urine Color COLORLESS Urine Turbidity CLEAR Urine pH 8.0 Urine Specific [place] 1.016 Urine Protein 30 mg/dL Urine Glucose (UA) NEG mg/dL Urine Ketones NEG mg/dL Urine Occult Blood TRACE Urine Nitrite NEG Urine Bilirubin NEG Urine Urobilinogen LESS THAN 2.0 MG/DL Urine Leukocyte Esterase NEG Urine RBC 1 /hpf Urine WBC LESS THAN 1 /hpf Urine Mucus FEW /lpf Urine Opiates Screen NEG Urine Barbiturates Screen NEG Urine Amphetamines Screen NEG Urine Benzodiazepines Screen NEG Urine Cocaine Screen NEG Urine Cannabinoids Screen NEG Nasal Screen MRSA (PCR) MRSA NOT DETECTED Blood Urea Nitrogen 13 MG/DL Creatinine 0.68 MG/DL Random Glucose 100 MG/DL Total Protein 6.4 GM/DL Albumin 3.5 GM/DL Calcium Level 8.2 MG/DL Phosphorus Level 3.2 MG/DL Magnesium Level 2.1 MG/DL Alkaline Phosphatase 91 U/L Aspartate Amino Transf (AST/SGOT) 20 U/L Alanine Aminotransferase (ALT/SGPT) 22 U/L Total Bilirubin 0.5 MG/DL Sodium Level 146 MEQ/L Potassium Level 3.5 MEQ/L Chloride Level 113 MEQ/L Carbon Dioxide Level 26.6 MEQ/L Anion Gap 6 MEQ/L Estimat Glomerular Filtration Rate 75 ML/MIN (Kwadwo Williamson) Medical Decision Making Impression and Plan Impression: 1. Left temporal intracranial hemorrhage. Likely related to hypertension 2. Hypertension Seizures The patient is drowsy when seen but does respond. The right-sided facial droop persists and she has expressive aphasia. Hypertension resolved. Reviewed labs for today. Mild anaemia secondary to fluid resuscitation. Sodium 146. Plan: Primary management per the [facility]. Neuro checks. Stat CT brain for any decline in neuro status. Monitor SBP and keep between 140 to 160 mm Hg, treat as needed. Mechanical DVT prophylaxis. Hold pharmacologic DVT prophylaxis. Stress ulcer prophylaxis. Levetiracetam for seizures. Repeat CT brain today. ADDENDUM at 1132: I have independently reviewed the CT brain images completed this morning and compared it with those image from . The left temporal haemorrhage is w/o any evident change, there is now edema surrounding the haemorrhage. BET (Kwadwo Williamson) Attending Statement The exam, history, and the medical decision-making described in the above note were completed with the assistance of the mid-level provider. I reviewed and agree with the findings presented. I attest that I had a [id number] encounter with the patient on the same day, and personally performed and documented my assessment and findings in the medical record. Patient examination unchanged from 05/10/2017 My review of 10/06/2016 CT scan head images reveal no saline change in relatively focal left temporal intracranial hemorrhage. There is relatively mild surrounding edema and mass effect without significant midline shift. No neurosurgical intervention planned at this point. Continue therapy (Siva Campbell MD) Kwadwo Williamson May 11, 2017 09:26 Siva Campbell MD May 15, 2017 18:52
[2017-05-11] MEDS: LORazepam 2 MG/ML VIAL IV PUSH PRN (09:34)
--- NOTE | 2017-05-11 11:07 | RADRPT ---
EXAM DATE/TIME: 05/11/2017 10:50 [facility] COMPARISON: CT BRAIN W/O CONTRAST, May 10, 2017, 20:19. INDICATIONS : Intracranial hemorrhage. RADIATION DOSE: 41.43 CTDIvol (mGy) MEDICAL HISTORY : Seizures. Hypertension. SURGICAL HISTORY : Non-responsive. ENCOUNTER: Initial ACUITY: 2 days PAIN SCALE: Non-responsive LOCATION: cranial TECHNIQUE: Multiple contiguous axial images were obtained of the head. Using automated exposure control and adj ustment of the mA and/or kV according to patient size, radiation dose was kept as low as reasonably a chievable to obtain optimal diagnostic quality images. DICOM format image data is available electro nically for review and comparison. FINDINGS: CEREBRUM: There is a persistent 2.5 cm focal hemorrhage in the left temporal lobe with surrounding edema. This is not significant change from the prior exam. The ventricles are normal for age. No evidence of mid line shift. No extra-axial fluid collections are seen. POSTERIOR FOSSA: The cerebellum and brainstem are intact. The 4th ventricle is midline. The cerebellopontine angle i s unremarkable. EXTRACRANIAL: The visualized portion of the orbits is intact. SKULL: The calvaria is intact. No evidence of skull fracture. CONCLUSION: Persistent left temporal focal hemorrhage with some surrounding edema. Rich Lott MD on May 11, 2017 at 11:03 Board Certified Radiologist. This report was verified electronically.
[2017-05-11] MEDS: hydrALAZINE HCL 20 MG/ML VIAL IV PUSH PRN ×2 (11:22→14:50)
--- NOTE | 2017-05-11 13:23 | EKG ---
Date Performed: 05/10/2017 Time Performed: 21:35:11 PTAGE: 89 years EKG: SINUS TACHYCARDIA POSSIBLE LEFT ATRIAL ENLARGEMENT NONSPECIFIC T-WAVE ABNORMALITY ABNORMAL RHYTHM ECG NO PREVIOUS TRACING DOCTOR: Heber Barrientos Interpretating Date/Time 05/11/2017 13:22:22
--- NOTE | 2017-05-11 13:32 | MB ---
cc: TAMARA GIBBONS M.D. DATE OF CONSULTATION: 05/11/2017 REASON FOR CONSULTATION: Initial stroke alert. HISTORY OF PRESENT ILLNESS: This is a possibly a 51 year-old woman who came in as a stroke alert after having some trouble speaking about 7 o'clock in the evening. Her blood pressure was 230/136 initially and they did a CT that showed that she had an intracranial hemorrhage over the left temporal region, hence she was not a candidate for TPA and had neurosurgery consulted. The patient is not intubated. She did not have an MRI. She had a follow up CT today that showed persistent left temporal hemorrhage with some surrounding edema. Her blood pressure has improved. Currently it is 132/81. PAST MEDICAL HISTORY, SOCIAL HISTORY, FAMILY HISTORY: Unknown. She awakens to sternal rub, hypophonic. She states her name. Her last name is Edy. She states she is 53, and I believe her first name she stated was [place]. She knows she is in the hospital. NEUROLOGICAL EXAMINATION Pupils are reactive. Mild right facial asymmetry. She seems to move everything but a little bit weaker on the right than on the left. No clonus. DTRs are 1 to 2+. Toes are silent. Gait is withheld. LABORATORY DATA: Reviewed. Hemoglobin 10.8. Drug panel, GGT was 20.4. Chemistry: Sodium 146, potassium 8.2, GFR 75. Tox screen was negative. CTA was unremarkable of the head. Neck was unremarkable. Repeat CT this morning shows persistent left temporal focal hemorrhage with some surrounding edema. IMPRESSION AND PLAN: 1. A 51 plus year-old woman with left temporal hemorrhage, likely hypertensive in nature. 2. Seizure due to hemorrhage. Recommend continuing her Keppra. Will get an EEG. Maintain neuro checks per protocol. SCDs for DVT prevention, no antiplatelets. Will keep her blood pressure below 150 systolic. Mannitol was given once. PT eval, OT eval and speech therapy eval will be needed. MD ANYI Bernstein/VAMSI /12:42 PM /12:52 PM
[2017-05-11] MEDS: niCARdipine 25 MG/NS 250 ML Vial2Bag or IV room IV PRN ×4 (17:43→21:21)
[2017-05-11] MEDS: DEXMEDETOMIDINE 200 MCG in NS 48 ML IV PRN (22:44)
[2017-05-12] VITALS (14 sets, daily range): BP systolic 123–152; BP diastolic 63–93; PULSE 56–98; RESP 17–20; TEMP 97.6–98.9; O2SAT 94–100
[2017-05-12] MEDS: DEXMEDETOMIDINE 200 MCG in NS 48 ML IV PRN ×6 (00:31→23:58)
[2017-05-12] MEDS ORDERED: HALOPERIDOL LACTATE 5 MG/ML AMP IV PUSH ONE (01:45)
[2017-05-12] MEDS ORDERED: LORazepam 2 MG/ML VIAL IV PUSH ONE (01:45)
[2017-05-12] MEDS ORDERED: diphenhydrAMINE HCL 50 MG/ML VIAL IV PUSH ONE (01:45)
[2017-05-12] MEDS: CHLORHEXIDINE GLUCONATE 2 % 1 PACK (2 CLOTHS) TOP SCH ×2 (04:00→22:14)
[2017-05-12] MEDS: hydrALAZINE HCL 20 MG/ML VIAL IV PUSH PRN ×3 (04:53→16:14)
[2017-05-12 05:44] LABS: BICARBONATE 24.8 MEQ/L (21.0-32.0); CALCIUM 8.3 MG/DL (8.5-10.1); CREATININE 0.6 MG/DL (0.50-1.00)
[2017-05-12] MEDS ORDERED: POTASSIUM CHLOR 20 MEQ PREMIX 100 ML IV PRN ×2 (07:00)
[2017-05-12] MEDS ORDERED: MAGNESIUM SULFATE INJ 4 GM in SODIUM CHLORIDE 0.9% INJ 92 ML IV PRN (07:00)
[2017-05-12] MEDS ORDERED: POTASSIUM PHOSPHATE INJ 30 MMOL in SODIUM CHLOR 0.9% 250 ML INJ 250 ML IV PRN (07:00)
[2017-05-12] MEDS ORDERED: MAGNESIUM SULFATE INJ 2 GM in SODIUM CHLORIDE 0.9% INJ 96 ML IV PRN (07:00)
[2017-05-12] MEDS ORDERED: POTASSIUM CHLOR 40 MEQ PREMIX 100 ML IV PRN ×2 (07:00)
[2017-05-12] MEDS ORDERED: POTASSIUM PHOSPHATE MONOBASIC 500 MG TAB PO PRN (07:00)
[2017-05-12] MEDS ORDERED: MAGNESIUM OXIDE 400 MG TAB PO PRN (07:00)
[2017-05-12] MEDS ORDERED: POTASSIUM CHLORIDE 25 MEQ EFFERVESCENT TAB PO PRN (07:00)
[2017-05-12] MEDS ORDERED: SODIUM PHOSPHATE INJ 30 MMOL in SODIUM CHLOR 0.9% 250 ML INJ 240 ML IV PRN (07:00)
[2017-05-12] MEDS ORDERED: POTASSIUM PHOSPHATE MONOBASIC 500 MG TAB PO/TUBE PRN (07:00)
--- NOTE | 2017-05-12 07:24 | HHI.CCPN ---
Subjective Remarks/Hospital Course 50 year old female admitted as a stroke alert due to a history of expressive aphasia that began sometime prior to arrival. According to ambulance services the patient was last seen normal by her neighbors in her hotel at approximately 1900. The patient was noted to have a right facial droop, was noted to be hypertensive with a blood pressure 230/136. The patient was not following commands, however she was spontaneously moving all extremities equally with 5 over 5 strength. As the patient has an expressive aphasia, no history is able to be obtained from the patient. CAT scan of the head revealed acute hemorrhagic stroke in the left anterior temporal lobe. While in the CAT scan for CTA the patient suffered 1 episode of generalized tonic-clonic seizure. 05/11: Hypertensive parenchymal bleed left temporal lobe, no underlying mass seen. Still unidentified patient; remains confused. Grossly moves 4 limbs. Talks nonsense intermittently. 05/12/17: Intermittently agitated, but does know she is in hospital and follows basic commands. CT of the head yesterday shows persistent left temporal focal hemorrhage. Currently on Precedex for agitation. Objective Vital Signs Date Time Temp Pulse Resp B/P (MAP) Pulse Ox O2 Delivery O2 Flow Rate FiO2 05/12/17 06:00 56 05/12/17 04:00 98.7 18 135/91 (106) 94 05/11/17 19:00 Nasal Cannula 2.00 Intake and Output 05/12/17 05/12/17 05/13/17 08:00 16:00 00:00 Output Total 2050 ml Balance -2050 ml Result Diagram: 05/11/17 0419 05/12/17 0503 Imaging Last 24 hours Impressions Neck CTA 05/10/172013 Signed Impressions: Service Date/Time: Wednesday, May 10, 2017 20:19 - CONCLUSION: Normal examination. Lala England MD Head CTA 05/10/172013 Signed Impressions: Service Date/Time: Wednesday, May 10, 2017 20:19 - CONCLUSION: Normal examination. Lala England MD Head CT 05/10/17 0000 Signed Impressions: Service Date/Time: Wednesday, May 10, 2017 20:19 - CONCLUSION: Acute hemorrhage left anterior temporal lobe. Lala England MD Objective Remarks GENERAL: Well-nourished, well-developed patient. SKIN: Warm and dry. HEAD: Normocephalic. EYES: No scleral icterus. No injection or drainage. NECK: Supple, trachea midline. Airway widely patent. CARDIOVASCULAR: Regular rate and rhythm without murmurs, gallops, or rubs. No JVD. RESPIRATORY: Breath sounds equal bilaterally. GASTROINTESTINAL: Abdomen soft, non-tender, nondistended. BS active. MUSCULOSKELETAL: No cyanosis, or edema. Well perfused. NEURO EXAM: The patient has mild right-sided facial droop. She is spontaneously moving all extremities with 5 over 5 strength. Patient knows she is in hospital, unable to clearly state her name A/P Assessment and Plan Hemorrhagic stroke - Due to uncontrolled hypertension - No surgical intervention indicated at this time - s/p Mannitol 1 g/kg IV 1 - Coags profile negative except slightly low fibrinogen - SBP goal less than 140 - Neuro checks per unit protocol - Drug screen negative - PT and OT eval and treat as tolerated - As needed Ativan when necessary for agitation Seizure - Due to above - Keppra loaded in the ED, Continue Keppra 1 g every 12 hours - Ativan when necessary Hypertension - Nicardipine drip-DC - Start Norvasc 5 mg daily - Labetalol and hydralazine when necessary to keep SBP less than 140 DVT GI prophylaxis - HILARY/SCDs - No pharmacological DVT prophylaxis due to acute ICH - Pepcid Overall impression: Confusion appears out of context in view of location of bleed. Unable to get history on drinking. BP control acceptable. Repeat CT - stable bleed Level 3 Myrtle Villanueva MD May 12, 2017 07:24
[2017-05-12] MEDS: levETIRAcetam INJ 100 ML IV SCH ×2 (08:42→19:59)
[2017-05-12] MEDS: DOCUSATE SODIUM 50 MG/SENNA 8.6 MG TAB PO SCH ×2 (08:42→19:59)
[2017-05-12] MEDS: LORazepam 2 MG/ML VIAL IV PUSH PRN ×4 (08:42→20:02)
[2017-05-12] MEDS: FAMOTIDINE 20 MG TAB PO SCH ×2 (08:42→19:59)
[2017-05-12] MEDS: SODIUM CHLORIDE 0.9% FLUSH 10 ML FLUSH IV FLUSH SCH ×2 (09:00→20:00)
--- NOTE | 2017-05-12 10:26 | MG ---
cc: TAMARA GIBBONS M.D. Lab No: [id number] Date: 05/12/2017 Age: Sex: F Race: Room 13O2 with hyperventilation omitted, too easily agitated to do photic. HISTORY Stroke alert and found to have a left temporal hemorrhage due to hypertension. MEDICATIONS Keppra. DESCRIPTION OF RECORD Quite a bit of background artifact but overall she has a 7 Hz background. ___ consistent with a prior theta range. Some occasional sharps are seen over the left hemisphere but not continuous, a lot of muscle artifact in the recording. IMPRESSION Abnormal EEG due to some mild background slowing with some occasional sharp waves over the left hemisphere, likely consistent with a structural lesion, hemorrhage may be focus for her epileptic activity but no active seizures seen. Clinical correlation. MD ANYI Bernstein/TLL /9:46 AM /10:06 AM
[2017-05-12] MEDS: SODIUM CHLOR 0.9% 1000 ML INJ 1,000 ML IV SCH ×2 (11:23→20:00)
--- NOTE | 2017-05-12 13:15 | HHI.NSPN ---
History Chief Complaint: None Interval History No new problems reported. The patient denies significant headache or dizziness. No nausea. She is hungry Exam Results Vital Signs Date Time Temp Pulse Resp B/P (MAP) Pulse Ox O2 Delivery O2 Flow Rate FiO2 05/12/17 10:00 64 05/12/17 08:42 98 21 05/12/17 08:00 98.5 20 150/75 (100) 05/12/17 07:00 Room Air 05/11/17 19:00 2.00 Intake and Output 05/12/17 05/12/17 05/13/17 08:00 16:00 00:00 Intake Total 1100 ml Output Total 2050 ml Balance -2050 ml 1100 ml Physical Examination GENERAL: Arouses easily to voice. No apparent distress HEENT: Normocephalic, atraumatic. PERRLA 2mm brisk, EOMI. No otorrhea or rhinorrhea. MUSCULOSKELETAL: FRANCISCO to command, NTTP, no evident deformity or clubbing. NEUROLOGICAL: Asleep, awakens to voice, answers questions & interacts, but does drift back off to sleep. She is oriented to person, hospital, month Her speech is soft, somewhat slow but without significant dysarthria There is a slight right-sided facial droop, o/w CN II-XII appear grossly intact. Moves all extremities with moderate strength to command No Rojas's bilaterally. No ankle clonus bilaterally. Neutral plantar response bilaterally. Lab, Micro, Other Results Laboratory Tests Test 05/12/17 05:03 05/12/17 12:31 Blood Urea Nitrogen 7 MG/DL Creatinine 0.60 MG/DL Random Glucose 98 MG/DL Calcium Level 8.3 MG/DL Magnesium Level 2.0 MG/DL Sodium Level 145 MEQ/L Potassium Level 3.4 MEQ/L Chloride Level 114 MEQ/L Carbon Dioxide Level 24.8 MEQ/L Anion Gap 6 MEQ/L Estimat Glomerular Filtration Rate 86 ML/MIN Medical Decision Making Impression and Plan Impression: 1. Left temporal intracranial hemorrhage. Likely hypertensive in origin 2. Hypertension 3. Possible seizures Plan: Continue ISC neuro checks Follow-up CT scan later this week Plan chemical DVT prophylaxis Stress ulcer prophylaxis Keppra for seizures Speech therapy for swallow eval. Advance diet as tolerated Siva Campbell MD May 12, 2017 13:15
[2017-05-12] MEDS ORDERED: chlordiazePOXIDE 25 MG CAP PO ONE (15:00)
[2017-05-12] MEDS: chlordiazePOXIDE 25 MG CAP PO SCH (19:59)
[2017-05-12] MEDS: niCARdipine 25 MG/NS 250 ML Vial2Bag or IV room IV PRN ×2 (23:59)
[2017-05-13] VITALS (12 sets, daily range): BP systolic 106–150; BP diastolic 68–96; PULSE 64–82; RESP 18–27; TEMP 97.5–98.9; O2SAT 93–100
[2017-05-13] MEDS: chlordiazePOXIDE 25 MG CAP PO SCH ×4 (03:47→20:54)
[2017-05-13] MEDS: DEXMEDETOMIDINE 200 MCG in NS 48 ML IV PRN (03:47)
[2017-05-13] MEDS: niCARdipine 25 MG/NS 250 ML Vial2Bag or IV room IV PRN ×2 (05:30)
[2017-05-13] MEDS: MORPHINE SULFATE 2 MG/ML INJ IV PUSH PRN (06:09)
[2017-05-13] MEDS: SODIUM CHLOR 0.9% 1000 ML INJ 1,000 ML IV SCH (08:23)
[2017-05-13] MEDS: levETIRAcetam INJ 100 ML IV SCH (08:32)
[2017-05-13] MEDS: FAMOTIDINE 20 MG TAB PO SCH ×2 (08:32→20:54)
--- NOTE | 2017-05-13 08:58 | HHI.NSPN ---
(Kwadwo Williamson) History Chief Complaint: None (Kwadwo Williamson) Interval History 05/10: This 50-year-old female was brought by EMS to the emergency room as a stroke alert after she experienced speech difficulty with expressive aphasia sometime after 7 PM this evening. She had an initial blood pressure of 2:30/ 136. In the emergency room she was awake with fluctuating level of consciousness. Initially nonverbal then occasionally saying some words but not following commands. Patient had a tonic-clonic seizure episode while in the CT scanning suite. No emesis reported. 05/10: When seen this morning the patient is asleep. She does awaken to voice, answering questions and interacting. She denies any headache, dizziness or nausea at this time. She does state that she does have visual problems and is not able to see well without her glasses. She does endorse some numbness at times to the lower extremities. She is in 4-point soft restraints. She is maintaining her own airway without any difficulty. 05/12: No new problems reported. The patient denies significant headache or dizziness. No nausea. She is hungry 05/13: The patient is very tearful this morning. She thinks she is in a long term because people think she is crazy. She states she remembers some of what happened to her and describes having problems with her vision and decided to go outside to smoke but had difficulty getting dressed. She went outside and came back in and she didn't know her friend and wasn't able to answer her questions. Her friend therefore called 911 and Law Enforcement came. She does not believe this practitioner or Nursing that it is and that she is in the hospital. She does have some difficulty finding words. She does follow commands and spontaneously moves all extremities. She denies any headache, dizziness or nausea. (Kwadwo Williamson) Exam Results 05/11/17 05/11/17 05/12/17 05/12/17 05/13/17 05/13/17 06:00 18:00 06:00 18:00 06:00 18:00 Intake Total 1469 ml 1150 ml 921 ml 1000 ml Output Total 2450 ml 950 ml 2050 ml 2950 ml Balance -981 ml -950 ml -900 ml -2029 ml 1000 ml Intake Oral 230 ml IV Total 1469 ml 1150 ml 691 ml 1000 ml Output Urine Total 2450 ml 950 ml 2050 ml 2950 ml # Bowel Movements 0 Vital Signs Date Time Temp Pulse Resp B/P (MAP) Pulse Ox O2 Delivery O2 Flow Rate FiO2 05/13/17 08:50 100 05/13/17 08:32 76 150/91 05/13/17 06:00 75 05/13/17 05:30 73 142/83 05/13/17 04:00 70 05/13/17 04:00 97.5 66 18 124/80 (95) 98 05/13/17 02:00 71 05/13/17 00:00 64 05/13/17 00:00 97.6 64 18 128/84 (99) 97 05/12/17 23:59 68 133/78 05/12/17 22:00 62 05/12/17 20:00 97.6 60 18 152/93 (112) 99 05/12/17 20:00 60 05/12/17 19:44 100 05/12/17 19:00 99 Room Air 05/12/17 18:00 59 05/12/17 16:00 98.3 75 17 127/75 (92) 100 05/12/17 16:00 75 05/12/17 14:00 90 05/12/17 12:00 82 05/12/17 12:00 98.2 82 20 149/81 (103) 98 05/12/17 10:00 64 05/12/17 08:42 98 21 05/12/17 08:00 98.5 71 20 150/75 (100) 100 05/12/17 08:00 71 05/12/17 07:00 99 Room Air 05/12/17 06:00 56 05/12/17 04:00 56 05/12/17 04:00 98.7 58 18 135/91 (106) 94 05/12/17 02:00 61 05/12/17 00:00 98.9 98 20 123/63 (83) 97 05/12/17 00:00 98 05/11/17 22:00 86 12/31/17 21:21 93 144/87 05/11/17 20:00 99.8 98 18 136/76 (96) 96 05/11/17 20:00 98 05/11/17 19:00 98 Nasal Cannula 2.00 05/11/17 18:01 90 05/11/17 17:43 85 177/81 05/11/17 16:00 98.2 78 16 132/70 (90) 98 05/11/17 16:00 86 05/11/17 14:00 76 05/11/17 12:00 98.1 79 20 132/81 (98) 97 05/11/17 12:00 81 05/11/17 10:00 71 05/11/17 08:00 98.3 80 19 127/80 (96) 97 05/11/17 08:00 79 05/11/17 07:45 97 Nasal Cannula 1.00 05/11/17 07:00 98 Nasal Cannula 2.00 05/11/17 06:32 82 109/68 05/11/17 06:00 79 05/11/17 04:00 80 05/11/17 04:00 97.8 78 19 123/73 (90) 96 05/11/17 03:04 78 137/81 05/11/17 02:00 79 05/11/17 01:59 82 92/56 05/11/17 00:00 97.9 95 18 124/77 (93) 92 05/11/17 00:00 94 05/10/17 23:51 100 129/76 05/10/17 23:00 97.9 92 18 169/96 (120) 97 05/10/17 23:00 92 05/10/17 22:30 84 16 151/71 (97) 98 2.00 05/10/17 22:01 90 234/138 05/10/17 22:00 96 16 157/75 (102) 95 2.00 05/10/17 21:30 106 16 168/103 (124) 95 2.00 05/10/17 21:15 124 18 183/101 (128) 97 2.00 05/10/17 21:00 104 18 170/109 (129) 97 2.00 05/10/17 20:45 65 16 242/121 (161) 97 2.00 05/10/17 20:20 98.0 90 16 234/134 (167) 97 2.00 05/10/17 20:15 93 100 Nasal Cannula 2.00 05/10/17 20:15 90 18 97 Nasal Cannula 2.00 05/10/17 20:15 99 Nasal Cannula 2.00 05/10/17 20:11 98.0 90 16 234/138 (170) 99 05/10/17 20:10 99 3.00 05/10/17 20:10 99 Nasal Cannula 3.00 (Kwadwo Williamson) Physical Examination GENERAL: Awake and alert, readily interacts. Tearful. No apparent distress HEENT: Normocephalic, atraumatic. PERRLA 2mm brisk, EOMI. MMM & pink, tongue midline to protrusion. MUSCULOSKELETAL: FRANCISCO spontaneously & to command, NTTP, no evident deformity or clubbing. NEUROLOGICAL: Awake & alert, oriented to self & being in [facility] but thinks this is a long term and not a hospital, initially said 18 for the year but then changed it to 2020 and wouldn't believe it was . Speech is soft and slow with some difficulty finding words. There is a slight right-sided facial droop, o/w CN II-XII appear grossly intact. Decreased sensation to the lower extremities that is chronic per patient, intact to light touch to upper extremities. Moves all extremities with moderate strength to command. No Rojas's bilaterally. No ankle clonus bilaterally. Neutral plantar response bilaterally. (Kwadwo Williamson) Lab, Micro, Other Results Recent Impressions Head CT 05/11/17 1000 Signed Impressions: Service Date/Time: Thursday, May 11, 2017 10:50 - CONCLUSION: Persistent left temporal focal hemorrhage with some surrounding edema. Rich Lott MD Neck CTA 05/10/172013 Signed Impressions: Service Date/Time: Wednesday, May 10, 2017 20:19 - CONCLUSION: Normal examination. Lala England MD Head CTA 05/10/172013 Signed Impressions: Service Date/Time: Wednesday, May 10, 2017 20:19 - CONCLUSION: Normal examination. Lala England MD Laboratory Tests Test 05/10/17 20:14 05/10/17 21:50 05/10/17 23:00 05/11/17 04:19 White Blood Count 4.4 TH/MM3 8.0 TH/MM3 Red Blood Count 3.75 MIL/MM3 3.43 MIL/MM3 Hemoglobin 11.6 GM/DL 10.8 GM/DL Bedside Hemoglobin 11.6 G/DL Hematocrit 34.7 % 31.8 % Bedside Hematocrit 34.0 % Mean Corpuscular Volume 92.4 FL 92.8 FL Mean Corpuscular Hemoglobin 31.0 PG 31.5 PG Mean Corpuscular Hemoglobin Concent 33.6 % 33.9 % Red Cell Distribution Width 13.7 % 13.6 % Platelet Count 216 TH/MM3 231 TH/MM3 Mean Platelet Volume 7.8 FL 8.0 FL Neutrophils (%) (Auto) 66.5 % 82.5 % Lymphocytes (%) (Auto) 24.7 % 11.0 % Monocytes (%) (Auto) 6.3 % 6.3 % Eosinophils (%) (Auto) 1.5 % 0.0 % Basophils (%) (Auto) 1.0 % 0.2 % Neutrophils # (Auto) 2.9 TH/MM3 6.6 TH/MM3 Lymphocytes # (Auto) 1.1 TH/MM3 0.9 TH/MM3 Monocytes # (Auto) 0.3 TH/MM3 0.5 TH/MM3 Eosinophils # (Auto) 0.1 TH/MM3 0.0 TH/MM3 Basophils # (Auto) 0.0 TH/MM3 0.0 TH/MM3 CBC Comment DIFF FINAL DIFF FINAL Differential Comment Prothrombin Time 10.0 SEC 10.4 SEC Prothromb Time International Ratio 1.0 RATIO 1.0 RATIO Activated Partial Thromboplast Time 20.4 SEC Fibrinogen 222 mg/dL Bedside Sodium 141 MMOL/L Bedside Potassium 4.2 MMOL/L Bedside Chloride 105 MMOL/L Bedside Blood Urea Nitrogen 18 MG/DL Bedside Creatinine 0.9 MG/DL Bedside Glucose 100 MG/DL Total Creatine Kinase 180 U/L Troponin I 0.02 NG/ML Human Chorionic Gonadotropin, Quant LESS THAN 1 MIU/ML Urine Color COLORLESS Urine Turbidity CLEAR Urine pH 8.0 Urine Specific [place] 1.016 Urine Protein 30 mg/dL Urine Glucose (UA) NEG mg/dL Urine Ketones NEG mg/dL Urine Occult Blood TRACE Urine Nitrite NEG Urine Bilirubin NEG Urine Urobilinogen LESS THAN 2.0 MG/DL Urine Leukocyte Esterase NEG Urine RBC 1 /hpf Urine WBC LESS THAN 1 /hpf Urine Mucus FEW /lpf Urine Opiates Screen NEG Urine Barbiturates Screen NEG Urine Amphetamines Screen NEG Urine Benzodiazepines Screen NEG Urine Cocaine Screen NEG Urine Cannabinoids Screen NEG Nasal Screen MRSA (PCR) MRSA NOT DETECTED Blood Urea Nitrogen 13 MG/DL Creatinine 0.68 MG/DL Random Glucose 100 MG/DL Total Protein 6.4 GM/DL Albumin 3.5 GM/DL Calcium Level 8.2 MG/DL Phosphorus Level 3.2 MG/DL Magnesium Level 2.1 MG/DL Alkaline Phosphatase 91 U/L Aspartate Amino Transf (AST/SGOT) 20 U/L Alanine Aminotransferase (ALT/SGPT) 22 U/L Total Bilirubin 0.5 MG/DL Sodium Level 146 MEQ/L Potassium Level 3.5 MEQ/L Chloride Level 113 MEQ/L Carbon Dioxide Level 26.6 MEQ/L Anion Gap 6 MEQ/L Estimat Glomerular Filtration Rate 75 ML/MIN Test 05/12/17 05:03 05/12/17 12:31 Blood Urea Nitrogen 7 MG/DL Creatinine 0.60 MG/DL Random Glucose 98 MG/DL Calcium Level 8.3 MG/DL Magnesium Level 2.0 MG/DL 2.0 MG/DL Sodium Level 145 MEQ/L Potassium Level 3.4 MEQ/L 3.5 MEQ/L Chloride Level 114 MEQ/L Carbon Dioxide Level 24.8 MEQ/L Anion Gap 6 MEQ/L Estimat Glomerular Filtration Rate 86 ML/MIN Phosphorus Level 3.0 MG/DL Orders Procedure Category Date Status Time Diet Npo DIET 05/11/17 Complete Breakfast Activity Bed Rest GELY 05/10/17 In Process Electrocardiogram CAV 05/10/17 Resulted I-Stat Creatinine LAB 05/10/17 Complete 20:14 I-Stat Profile LAB 05/10/17 Complete 20:14 Prothrombin Time / LAB 05/10/17 Complete Inr (Pt) 20:14 Act Partial Throm LAB 05/10/17 Complete Time (Ptt) 20:14 Complete Blood Count LAB 05/10/17 Complete With Diff 20:14 Fibrinogen LAB 05/10/17 Complete 20:14 Creatine Kinase (Cpk) LAB 05/10/17 Complete 20:14 Troponin I LAB 05/10/17 Complete 20:14 Ua Includes LAB 05/10/17 Complete Microscopic 20:14 Type And Screen BBK 05/10/17 Complete 20:14 Ct Brain W/O Iv RADCT 05/10/17 Resulted Contrast(Rout) Cta Brain W Iv RADCT 05/10/17 Resulted Contrast W 3d 20:14 Cta Neck W Iv RADCT 05/10/17 Resulted Contrast W 3d 20:14 Beta Hcg (Quant/Titer) LAB 05/10/17 Complete 20:14 Consult Neurology CONS 05/10/17 Transmitted Blood Glucose TX 05/10/17 Transmitted 20:14 Ecg Monitoring TX 05/10/17 Transmitted 20:14 Neuro Checks GELY 05/10/17 Complete 20:14 Nursing Bedside GELY 05/10/17 In Process Swallow Assess 20:14 Iv Access TX 05/10/17 Transmitted Insert/Monitor 20:14 NPO TX 05/10/17 Transmitted 20:14 Oximetry TX 05/10/17 Transmitted 20:14 Oxygen Administration TX 05/10/17 Transmitted 20:14 Resp Oxygen Shyam C RSP 05/10/17 Logged Titrat 1-4 L 20:14 Cath For Specimen TX 05/10/17 Transmitted 20:14 Sodium Chlor 0.9% MED 05/10/17 Complete 1000 Ml Inj (Ns 1000 M 20:15 Nicardipine Inj MED 05/10/17 Complete (Cardene Inj) 20:19 Lorazepam Inj (Ativan MED 05/10/17 Complete Inj) 20:20 Lorazepam Inj (Ativan MED 05/10/17 Complete Inj) 20:30 Nicardipine Inj MED 05/10/17 Complete (Cardene Inj) 20:30 Iohexol 350 Inj MED 05/10/17 Complete (Omnipaque 350 Inj) 20:32 Levetiracetam Inj MED 05/10/17 Complete (Keppra Inj) 20:45 Admit Order (Ed Use ADMITTING 05/10/17 Transmitted Only) 20:48 Consult Neurosurgery CONS 05/10/17 Transmitted Admit To Inpatient ADMITTING 05/10/17 Transmitted Code Status CODE 05/10/17 Transmitted 20:48 Vital Signs (Adult) GELY 05/10/17 In Process 20:48 Activity Bed Rest GELY 05/10/17 In Process 20:48 Elevate Head Of Bed GELY 05/10/17 In Process 20:48 Neuro Checks GELY 05/10/17 Complete 20:48 Sodium Chlor 0.9% MED 05/10/17 In Process 1000 Ml Inj (Ns 1000 M 20:48 Sodium Chloride 0.9% MED 05/10/17 In Process Flush (Ns Flush) 21:00 Sodium Chloride 0.9% MED 05/10/17 In Process Flush (Ns Flush) 21:00 Acetaminophen MED 05/10/17 In Process (Tylenol) 21:00 Famotidine Inj MED 05/10/17 Complete (Pepcid Inj) 21:00 Famotidine (Pepcid) MED 05/10/17 In Process 21:00 Lorazepam Inj (Ativan MED 05/10/17 In Process Inj) 21:00 Albuterol-Ipratropium MED 05/10/17 In Process Neb (Duoneb Neb) 21:00 Complete Blood Count LAB 05/11/17 Complete With Diff 04:00 Comprehensive LAB 05/11/17 Complete Metabolic Panel 04:00 Prothrombin Time / LAB 05/11/17 Complete Inr (Pt) 04:00 Magnesium (Mg) LAB 05/11/17 Complete 04:00 Phosphorus (Po4) LAB 05/11/17 Complete 04:00 Pt Request For Service PT 05/10/17 Logged 20:48 Assessment Nurse / GELY 05/10/17 Complete Telemetry 20:48 Pharmacologic GELY 05/10/17 In Process Contraindication 20:48 ^ Initiate Protocol GELY 05/10/17 In Process 20:48 Instruction GELY 05/10/17 In Process 20:48 Misc Nursing MED 05/10/17 In Process Information 21:00 Chlorhexidine 2% MED 05/11/17 In Process Cloth (Chlorhexidine 04:00 Chlorhexidine 2% MED 05/10/17 In Process Cloth (Chlorhexidine 21:00 Mrsa Pcr Surveillance LAB 05/10/17 Complete 20:48 Docusate Sodium-Senna MED 05/10/17 In Process (Edelmira-Colace) 21:00 Magnesium Hydroxide MED 05/10/17 In Process Liq (Milk Of Magnesi 21:00 Sennosides (Senokot) MED 05/10/17 In Process 21:00 Bisacodyl Supp MED 05/10/17 In Process (Dulcolax Supp) 21:00 Lactulose Liq MED 05/10/17 In Process (Lactulose Liq) 21:00 Inpatient ADMITTING 05/10/17 Transmitted Certification Labetalol Inj MED 05/10/17 In Process (Trandate Inj) 21:00 Hydralazine Inj MED 05/10/17 In Process (Apresoline Inj) 21:00 Drug Screen, Random LAB 05/10/17 Complete Urine 20:53 Specimen To Be GELY 05/10/17 In Process Collected 20:53 Levetiracetam Inj MED 05/10/17 In Process (Keppra Inj) 21:00 Haloperidol Inj MED 05/10/17 Complete (Haldol Inj) 21:29 Morphine Inj MED 05/10/17 In Process (Morphine Inj) 21:45 Urinary Catheter TX 05/10/17 Transmitted Insert/Apply 21:41 Nicardipine Inj MED 05/10/17 In Process (Cardene Inj) 21:45 Mannitol Inj MED 05/10/17 Complete (Mannitol Inj) 21:48 Lorazepam Inj (Ativan MED 05/10/17 Complete Inj) 22:15 Haloperidol Inj MED 05/10/17 Complete (Haldol Inj) 22:15 Mannitol Inj MED 05/10/17 Complete (Mannitol Inj) 22:15 (Hub Use Only)Inp Phy CONS 05/10/17 Transmitted Cons/Ref (Hub Use Only)Inp Phy CONS 05/10/17 Transmitted Cons/Ref Mannitol Inj MED 05/10/17 Complete (Mannitol Inj) 23:19 Ct Brain W/O Iv RADCT 05/11/17 Resulted Contrast(Rout) 10:00 Diphenhydramine Inj MED 05/11/17 Complete (Benadryl Inj) 01:15 Lorazepam Inj (Ativan MED 05/11/17 Complete Inj) 01:15 Haloperidol Inj MED 05/11/17 Complete (Haldol Inj) 01:15 Consult Hospitalist CONS 05/11/17 Transmitted Magnesium (Mg) LAB 05/12/17 Complete 06:00 Basic Metabolic Panel LAB 05/12/17 Complete (Bmp) 06:00 Portable Eeg EEG 05/11/17 Complete Restraints Non-Violent GELY 05/11/17 Complete 14:37 Dexmedetomidine Inj MED 05/11/17 In Process (Precedex Inj) 22:45 Haloperidol Inj MED 05/12/17 Complete (Haldol Inj) 01:45 Diphenhydramine Inj MED 05/12/17 Complete (Benadryl Inj) 01:45 Lorazepam Inj (Ativan MED 05/12/17 Complete Inj) 01:45 ^ Medication Admin GELY 05/12/17 In Process Instruction 06:[address]: Other GELY 05/12/17 In Process 06:48 Phosphorus (Po4) LAB 05/12/17 Complete 06:48 Potassium, Serum (K) LAB 05/12/17 Complete 06:48 Magnesium (Mg) LAB 05/12/17 Complete 06:48 Potassium Chlor 40 MED 05/12/17 In Process Meq Premix (Kcl 40 Me 07:00 Potassium Chlor 20 MED 05/12/17 In Process Meq Premix (Kcl 20 Me 07:00 Potassium Chloride MED 05/12/17 In Process Eff (K-Lyte Cl Eff) 07:00 Potassium Chlor 40 MED 05/12/17 In Process Meq Premix (Kcl 40 Me 07:00 Potassium Chlor 20 MED 05/12/17 In Process Meq Premix (Kcl 20 Me 07:00 Magnesium Sulfate Inj MED 05/12/17 In Process (Magnesium Sulfate 07:00 Magnesium Oxide MED 05/12/17 In Process (Mag-Ox) 07:00 Magnesium Sulfate Inj MED 05/12/17 In Process (Magnesium Sulfate 07:00 Potassium Phosphate MED 05/12/17 In Process (K-Phos) 07:00 Sodium Phosphate Inj MED 05/12/17 In Process (Sodium Phosphate I 07:00 Potassium Phosphate MED 05/12/17 In Process (K-Phos) 07:00 Potassium Phosphate MED 05/12/17 In Process Inj (Potassium Phosp 07:[address] 05/12/17 Logged Consult-Eval/Tx 13:15 Diet Progression GELY 05/12/17 In Process Instructions 13:15 Chlordiazepoxide MED 05/12/17 Complete (Librium) 15:00 Chlordiazepoxide MED 05/12/17 In Process (Librium) 20:00 Diet Regular Basic DIET 05/12/17 Transmitted Dinner (Hub Use Only)Inp Phy CONS 05/13/17 Transmitted Cons/Ref Vital Signs Date Time Temp Pulse Resp B/P (MAP) Pulse Ox O2 Delivery O2 Flow Rate FiO2 05/13/17 08:50 100 05/13/17 08:32 76 150/91 05/13/17 06:00 75 05/13/17 05:30 73 142/83 05/13/17 04:00 70 05/13/17 04:00 97.5 66 18 124/80 (95) 98 05/13/17 02:00 71 05/13/17 00:00 64 05/13/17 00:00 97.6 64 18 128/84 (99) 97 05/12/17 23:59 68 133/78 05/12/17 22:00 62 05/12/17 20:00 97.6 60 18 152/93 (112) 99 05/12/17 20:00 60 05/12/17 19:44 100 05/12/17 19:00 99 Room Air 05/12/17 18:00 59 05/12/17 16:00 98.3 75 17 127/75 (92) 100 05/12/17 16:00 75 05/12/17 14:00 90 05/12/17 12:00 82 05/12/17 12:00 98.2 82 20 149/81 (103) 98 05/12/17 10:00 64 05/12/17 08:42 98 21 05/12/17 08:00 98.5 71 20 150/75 (100) 100 05/12/17 08:00 71 05/12/17 07:00 99 Room Air 05/12/17 06:00 56 05/12/17 04:00 56 05/12/17 04:00 98.7 58 18 135/91 (106) 94 05/12/17 02:00 61 05/12/17 00:00 98.9 98 20 123/63 (83) 97 05/12/17 00:00 98 05/11/17 22:00 86 05/11/17 21:21 93 144/87 05/11/17 20:00 99.8 98 18 136/76 (96) 96 05/11/17 20:00 98 05/11/17 19:00 98 Nasal Cannula 2.00 05/11/17 18:01 90 05/11/17 17:43 85 177/81 05/11/17 16:00 98.2 78 16 132/70 (90) 98 05/11/17 16:00 86 05/11/17 14:00 76 05/11/17 12:00 98.1 79 20 132/81 (98) 97 05/11/17 12:00 81 05/11/17 10:00 71 05/11/17 08:00 98.3 80 19 127/80 (96) 97 05/11/17 08:00 79 05/11/17 07:45 97 Nasal Cannula 1.00 05/11/17 07:00 98 Nasal Cannula 2.00 05/11/17 06:32 82 109/68 05/11/17 06:00 79 05/11/17 04:00 80 05/11/17 04:00 97.8 78 19 123/73 (90) 96 05/11/17 03:04 78 137/81 05/11/17 02:00 79 05/11/17 01:59 82 92/56 05/11/17 00:00 97.9 95 18 124/77 (93) 92 05/11/17 00:00 94 05/10/17 23:51 100 129/76 05/10/17 23:00 97.9 92 18 169/96 (120) 97 05/10/17 23:00 92 05/10/17 22:30 84 16 151/71 (97) 98 2.00 05/10/17 22:01 90 234/138 05/10/17 22:00 96 16 157/75 (102) 95 2.00 05/10/17 21:30 106 16 168/103 (124) 95 2.00 05/10/17 21:15 124 18 183/101 (128) 97 2.00 05/10/17 21:00 104 18 170/109 (129) 97 2.00 05/10/17 20:45 65 16 242/121 (161) 97 2.00 05/10/17 20:20 98.0 90 16 234/134 (167) 97 2.00 05/10/17 20:15 93 100 Nasal Cannula 2.00 05/10/17 20:15 90 18 97 Nasal Cannula 2.00 05/10/17 20:15 99 Nasal Cannula 2.00 05/10/17 20:11 98.0 90 16 234/138 (170) 99 05/10/17 20:10 99 3.00 05/10/17 20:10 99 Nasal Cannula 3.00 (Kwadwo Williamson) Medical Decision Making Impression and Plan Impression: 1. Left temporal intracranial hemorrhage. Likely related to hypertension 2. Hypertension Seizures The patient is awake & alert although still with confusion & expressive aphasia. She also has a right-sided facial droop that persists. Hypertension improved. CT demonstrates stable left temporal haemorrhage w/surrounding edema. Plan: Primary management per the Freight Dispatcher. Neuro checks. Stat CT brain for any decline in neuro status. Monitor SBP and keep between 140 to 160 mm Hg, treat as needed. Mechanical DVT prophylaxis. Hold pharmacologic DVT prophylaxis. Stress ulcer prophylaxis. Levetiracetam for seizures. Mobilise patient w/assistance. PT eval & tx. ST eval & tx. (Kwadwo Williamson) Attending Statement The exam, history, and the medical decision-making described in the above note were completed with the assistance of the mid-level provider. I reviewed and agree with the findings presented. I attest that I had a [id number] encounter with the patient on the same day, and personally performed and documented my assessment and findings in the medical record. On my examination 05/13/2017 patient remains intermittent agitated. Significant expressive speech deficit. Results extremities well. Minimal left facial paresis. Asst. be improving slowly Most recent CT scan head imaging stable hemorrhage without significant mass effect. Continue speech, occupational, physical therapy. (Siva Campbell MD) Kwadwo Williamson May 13, 2017 08:58 Siva Campbell MD May 14, 2017 21:07
[2017-05-13] MEDS: DOCUSATE SODIUM 50 MG/SENNA 8.6 MG TAB PO SCH ×2 (09:00→20:54)
[2017-05-13] MEDS: SODIUM CHLORIDE 0.9% FLUSH 10 ML FLUSH IV FLUSH SCH ×2 (09:00→20:54)
--- NOTE | 2017-05-13 09:24 | HHI.CCPN ---
Subjective Remarks/Hospital Course 50 year old female admitted as a stroke alert due to a history of expressive aphasia that began sometime prior to arrival. According to ambulance services the patient was last seen normal by her neighbors in her hotel at approximately 1900. The patient was noted to have a right facial droop, was noted to be hypertensive with a blood pressure 230/136. The patient was not following commands, however she was spontaneously moving all extremities equally with 5 over 5 strength. As the patient has an expressive aphasia, no history is able to be obtained from the patient. CAT scan of the head revealed acute hemorrhagic stroke in the left anterior temporal lobe. While in the CAT scan for CTA the patient suffered 1 episode of generalized tonic-clonic seizure. 05/11: Hypertensive parenchymal bleed left temporal lobe, no underlying mass seen. Still unidentified patient; remains confused. Grossly moves 4 limbs. Talks nonsense intermittently. 05/12/17: Intermittently agitated, but does know she is in hospital and follows basic commands. CT of the head yesterday shows persistent left temporal focal hemorrhage. Currently on Precedex for agitation. 05/13/17: Improving mentation, but remains on Precedex. Cardene restarted for BP control. I will place on Clonidine 0.2 mg PO q8 hours to transition from Precedex and also for better BP control. Continue Librium scheduled Objective Vital Signs Date Time Temp Pulse Resp B/P (MAP) Pulse Ox O2 Delivery O2 Flow Rate FiO2 05/13/17 08:50 100 05/13/17 08:32 76 150/91 05/13/17 04:00 97.5 18 05/12/17 19:00 Room Air 05/12/17 08:42 21 05/11/17 19:00 2.00 Intake and Output 05/13/17 05/13/17 05/14/17 08:00 16:00 00:00 Intake Total 50 ml 1000 ml Output Total 1700 ml Balance -1650 ml 1000 ml Result Diagram: 05/11/17 0419 05/12/17 1231 Imaging Last 24 hours Impressions Neck CTA 05/10/172013 Signed Impressions: Service Date/Time: Wednesday, May 10, 2017 20:19 - CONCLUSION: Normal examination. Lala England MD Head CTA 05/10/172013 Signed Impressions: Service Date/Time: Wednesday, May 10, 2017 20:19 - CONCLUSION: Normal examination. Lala England MD Head CT 05/10/17 0000 Signed Impressions: Service Date/Time: Wednesday, May 10, 2017 20:19 - CONCLUSION: Acute hemorrhage left anterior temporal lobe. Lala England MD Objective Remarks GENERAL: Well-nourished, well-developed patient. On Precedex and Cardene infusion SKIN: Warm and dry. HEAD: Normocephalic. EYES: No scleral icterus. No injection or drainage. NECK: Supple, trachea midline. Airway widely patent. CARDIOVASCULAR: Regular rate and rhythm without murmurs, gallops, or rubs. No JVD. RESPIRATORY: Breath sounds equal bilaterally. GASTROINTESTINAL: Abdomen soft, non-tender, nondistended. BS active. MUSCULOSKELETAL: No cyanosis, or edema. Well perfused. NEURO EXAM: The patient has mild right-sided facial droop. She is spontaneously moving all extremities with 5 over 5 strength. Patient oriented x3 today, improving mentation A/P Assessment and Plan Hemorrhagic stroke - Due to uncontrolled hypertension - No surgical intervention indicated at this time, NS Dr. Campbell - s/p Mannitol 1 g/kg IV 1 - Coags profile negative except slightly low fibrinogen - SBP goal less than 150-160 - Neuro checks per unit protocol - Drug screen negative - PT and OT eval and treat as tolerated - As needed Ativan when necessary for agitation Seizure - Due to above - Keppra loaded in the ED, Continue Keppra 1 g every 12 hours, cahnge to PO - Ativan when necessary Hypertension - Nicardipine drip- wean to DC - Start Norvasc 5 mg daily, Clonidine 0.2 mg po q8h (will help with weaning both Cardene and Precedex) - Labetalol and hydralazine when necessary to keep SBP less than 140 DVT GI prophylaxis - HILARY/SCDs - No pharmacological DVT prophylaxis due to acute ICH - Pepcid Overall impression: Confusion appears out of context in view of location of bleed. Unable to get history on drinking. BP control acceptable. Repeat CT - stable bleed. Tranfer to Med -Surg with Tele. Dr. Meeks to assume care in am Level 3 Myrtle Villanueva MD May 13, 2017 09:24
[2017-05-13] MEDS ORDERED: amLODIPine BESYLATE 5 MG TAB PO ONE (09:30)
[2017-05-13] MEDS: cloNIDine HCL 0.2 MG TAB PO SCH ×3 (09:47→20:54)
[2017-05-13] MEDS: levETIRAcetam 500 MG TAB PO SCH (20:54)
[2017-05-13] MEDS: CHLORHEXIDINE GLUCONATE 2 % 1 PACK (2 CLOTHS) TOP SCH (20:55)
[2017-05-14] VITALS (11 sets, daily range): BP systolic 94–170; BP diastolic 65–100; PULSE 52–67; RESP 18–20; TEMP 97.3–101.6; O2SAT 94–100
[2017-05-14] MEDS: chlordiazePOXIDE 25 MG CAP PO SCH ×3 (03:50→20:40)
[2017-05-14] MEDS: cloNIDine HCL 0.2 MG TAB PO SCH ×3 (05:35→20:40)
[2017-05-14] MEDS: FAMOTIDINE 20 MG TAB PO SCH ×2 (08:48→20:40)
[2017-05-14] MEDS: DOCUSATE SODIUM 50 MG/SENNA 8.6 MG TAB PO SCH ×2 (08:48→20:47)
[2017-05-14] MEDS: levETIRAcetam 500 MG TAB PO SCH ×2 (08:48→20:40)
[2017-05-14] MEDS: SODIUM CHLORIDE 0.9% FLUSH 10 ML FLUSH IV FLUSH SCH ×2 (08:57→20:47)
--- NOTE | 2017-05-14 15:16 | HHI.PR ---
Subjective Remarks Patient able to awake with verbal stimuli and answer questions with slow speech patient appears sedated Objective Vitals Vital Signs Date Time Temp Pulse Resp B/P (MAP) Pulse Ox O2 Delivery O2 Flow Rate FiO2 05/14/17 11:33 97.9 66 20 113/65 (81) 96 05/14/17 08:08 98.7 52 20 148/95 (112) 97 05/14/17 08:00 55 05/14/17 05:12 61 05/14/17 04:00 97.3 54 18 163/100 (121) 100 05/14/17 02:40 98 05/14/17 01:07 54 05/14/17 00:00 98.3 55 18 158/90 (112) 99 05/13/17 20:00 98.9 74 18 133/77 (95) 93 05/13/17 18:00 72 05/13/17 16:00 66 05/13/17 16:00 98.2 66 18 150/96 (114) 100 Result Diagram: 05/11/17 0419 05/12/17 1231 Other Results Laboratory Tests Test 05/12/17 05:03 05/12/17 12:31 Blood Urea Nitrogen 7 MG/DL Creatinine 0.60 MG/DL Random Glucose 98 MG/DL Calcium Level 8.3 MG/DL Magnesium Level 2.0 MG/DL 2.0 MG/DL Sodium Level 145 MEQ/L Potassium Level 3.4 MEQ/L 3.5 MEQ/L Chloride Level 114 MEQ/L Carbon Dioxide Level 24.8 MEQ/L Anion Gap 6 MEQ/L Estimat Glomerular Filtration Rate 86 ML/MIN Phosphorus Level 3.0 MG/DL Imaging Last Impressions Head CT 05/11/17 1000 Signed Impressions: Service Date/Time: Thursday, May 11, 2017 10:50 - CONCLUSION: Persistent left temporal focal hemorrhage with some surrounding edema. Rich Lott MD Neck CTA 05/10/172013 Signed Impressions: Service Date/Time: Wednesday, May 10, 2017 20:19 - CONCLUSION: Normal examination. Lala England MD Head CTA 05/10/172013 Signed Impressions: Service Date/Time: Wednesday, May 10, 2017 20:19 - CONCLUSION: Normal examination. Lala England MD Objective Remarks GENERAL: Well-nourished, well-developed patient. Appears sedated CARDIOVASCULAR: Regular rate and rhythm without murmurs, gallops, or rubs. No JVD. RESPIRATORY: Breath sounds equal bilaterally. GASTROINTESTINAL: Abdomen soft, non-tender, nondistended. BS active. MUSCULOSKELETAL: No cyanosis, or edema. Well perfused. NEURO EXAM: The patient has mild right-sided facial droop. She is spontaneously moving all extremities with 5 over 5 strength. speech slow A/P Problem List: (1) Hemorrhagic cerebrovascular accident (CVA) ICD Codes: I61.9 - Nontraumatic intracerebral hemorrhage, unspecified Plan: Hemorrhagic stroke - Due to uncontrolled hypertension - No surgical intervention indicated at this time, NS Dr. Campbell - s/p Mannitol 1 g/kg IV 1 - Coags profile negative except slightly low fibrinogen - SBP goal less than 150-160 - Neuro checks per unit protocol - Drug screen negative - PT and OT eval and treat as tolerated - As needed Ativan when necessary for agitation DVT GI prophylaxis - HILARY/SCDs - No pharmacological DVT prophylaxis due to acute ICH - Pepcid (2) HTN (hypertension) ICD Codes: I10 - Essential (primary) hypertension Plan: - Nicardipine drip initially which has been weaned to DC - Norvasc 5 mg daily, Clonidine 0.2 mg po q8h - Labetalol and hydralazine when necessary to keep SBP less than 140 (3) Seizure ICD Codes: R56.9 - Unspecified convulsions Plan: - Due to above - Keppra loaded in the ED, Continue Keppra 1 g every 12 hours, changed to PO 05/13 - Ativan when necessary - Patient on Librium due to concerns of ETOH abuse. Patient denies ETOH use and appears sedated. Will decrease Librium to BID (4) Bilateral hip pain ICD Codes: M25.551 - Pain in right hip; M25.552 - Pain in left hip Plan: bilateral hip and back pain Xray bilateral hips and lumbar spine Assessment and Plan Patient examined. Assessment and plan formulated with Patience Somers PA-C. I agree with the above. Patience Somers May 14, 2017 15:16 Roger Santillan DO May 18, 2017 11:27
[2017-05-14] MEDS: MORPHINE SULFATE 2 MG/ML INJ IV PUSH PRN (16:33)
--- NOTE | 2017-05-14 16:53 | HHI.NSPN ---
(Kwadwo Williamson) History Chief Complaint: Left hip pain. (Kwadwo Williamson) Interval History 05/10: This 50-year-old female was brought by EMS to the emergency room as a stroke alert after she experienced speech difficulty with expressive aphasia sometime after 7 PM this evening. She had an initial blood pressure of 2:30/ 136. In the emergency room she was awake with fluctuating level of consciousness. Initially nonverbal then occasionally saying some words but not following commands. Patient had a tonic-clonic seizure episode while in the CT scanning suite. No emesis reported. 05/10: When seen this morning the patient is asleep. She does awaken to voice, answering questions and interacting. She denies any headache, dizziness or nausea at this time. She does state that she does have visual problems and is not able to see well without her glasses. She does endorse some numbness at times to the lower extremities. She is in 4-point soft restraints. She is maintaining her own airway without any difficulty. 05/12: No new problems reported. The patient denies significant headache or dizziness. No nausea. She is hungry 05/13: The patient is very tearful this morning. She thinks she is in a group home because people think she is crazy. She states she remembers some of what happened to her and describes having problems with her vision and decided to go outside to smoke but had difficulty getting dressed. She went outside and came back in and she didn't know her friend and wasn't able to answer her questions. Her friend therefore called 911 and Law Enforcement came. She does not believe this practitioner or Nursing that it is and that she is in the hospital. She does have some difficulty finding words. She does follow commands and spontaneously moves all extremities. She denies any headache, dizziness or nausea. 05/14: When seen the patient is partially sitting up in bed. She complains of pain to the left hip. She does have some dizziness but denies any headache. When speaking the patient was slightly slow in responding but did not search for any words. She is oriented to person, place and time today. (Kwadwo Williamson) Exam Results 05/12/17 05/12/17 05/13/17 05/13/17 05/14/17 05/14/17 06:00 18:00 06:00 18:00 06:00 18:00 Intake Total 1150 ml 921 ml 2434 ml 360 ml Output Total 950 ml 2050 ml 2950 ml 1025 ml 700 ml Balance -950 ml -900 ml -2029 ml 1409 ml -700 ml 360 ml Intake Oral 230 ml 960 ml 360 ml IV Total 1150 ml 691 ml 1474 ml Output Urine Total 950 ml 2050 ml 2950 ml 1025 ml 700 ml Bladder Scan Volume Amount 183 ml # Bowel Movements 0 0 2 Vital Signs Date Time Temp Pulse Resp B/P (MAP) Pulse Ox O2 Delivery O2 Flow Rate FiO2 05/14/17 16:33 98.1 54 20 94/65 (75) 98 05/14/17 11:33 97.9 66 20 113/65 (81) 96 05/14/17 08:08 98.7 52 20 148/95 (112) 97 05/14/17 08:00 55 05/14/17 05:12 61 05/14/17 04:00 97.3 54 18 163/100 (121) 100 05/14/17 02:40 98 05/14/17 01:07 54 05/14/17 00:00 98.3 55 18 158/90 (112) 99 05/13/17 20:00 98.9 74 18 133/77 (95) 93 05/13/17 18:00 72 05/13/17 16:00 66 05/13/17 16:00 98.2 66 18 150/96 (114) 100 05/13/17 14:00 79 05/13/17 12:00 70 05/13/17 12:00 98.0 70 27 106/68 (81) 100 05/13/17 10:00 82 05/13/17 09:45 72 142/84 05/13/17 08:50 100 05/13/17 08:32 76 150/91 05/13/17 08:00 70 05/13/17 08:00 97.8 70 21 141/85 (103) 100 05/13/17 07:00 99 Room Air 05/13/17 06:00 75 05/13/17 05:30 73 142/83 05/13/17 04:00 70 05/13/17 04:00 97.5 66 18 124/80 (95) 98 05/13/17 02:00 71 05/13/17 00:00 64 05/13/17 00:00 97.6 64 18 128/84 (99) 97 05/12/17 23:59 68 133/78 05/12/17 22:00 62 05/12/17 20:00 97.6 60 18 152/93 (112) 99 05/12/17 20:00 60 05/12/17 19:44 100 05/12/17 19:00 99 Room Air 05/12/17 18:00 59 05/12/17 16:00 98.3 75 17 127/75 (92) 100 05/12/17 16:00 75 05/12/17 14:00 90 05/12/17 12:00 82 05/12/17 12:00 98.2 82 20 149/81 (103) 98 05/12/17 10:00 64 05/12/17 08:42 98 Nasal Cannula 1.00 05/12/17 08:42 98 21 05/12/17 08:00 98.5 71 20 150/75 (100) 100 05/12/17 08:00 71 05/12/17 07:00 99 Room Air 05/12/17 06:00 56 05/12/17 04:00 56 05/12/17 04:00 98.7 58 18 135/91 (106) 94 05/12/17 02:00 61 05/12/17 00:00 98.9 98 20 123/63 (83) 97 05/12/17 00:00 98 05/11/17 22:00 86 05/11/17 21:21 93 144/87 05/11/17 20:00 99.8 98 18 136/76 (96) 96 05/11/17 20:00 98 05/11/17 19:00 98 Nasal Cannula 2.00 05/11/17 18:01 90 05/11/17 17:43 85 177/81 (Kwadwo Williamson) Physical Examination GENERAL: Awake and alert, readily interacts. Flat affect. No apparent distress HEENT: Normocephalic, atraumatic. PERRLA 2mm brisk, EOMI. MMM & pink, tongue midline to protrusion. MUSCULOSKELETAL: FRANCISCO spontaneously & to command, NTTP, no evident deformity or clubbing. NEUROLOGICAL: AA&O x3. Speech is soft and slow but appropriate. CN II-XII appear grossly intact, no evident facial droop. Sensation intact to light touch to all extremities. Moves all extremities with moderate strength to command. (Kwadwo Williamson) Lab, Micro, Other Results Laboratory Tests Test 05/12/17 05:03 05/12/17 12:31 Blood Urea Nitrogen 7 MG/DL Creatinine 0.60 MG/DL Random Glucose 98 MG/DL Calcium Level 8.3 MG/DL Magnesium Level 2.0 MG/DL 2.0 MG/DL Sodium Level 145 MEQ/L Potassium Level 3.4 MEQ/L 3.5 MEQ/L Chloride Level 114 MEQ/L Carbon Dioxide Level 24.8 MEQ/L Anion Gap 6 MEQ/L Estimat Glomerular Filtration Rate 86 ML/MIN Phosphorus Level 3.0 MG/DL (Kwadwo Williamson) Medical Decision Making Impression and Plan Impression: 1. Left temporal intracranial hemorrhage. Likely related to hypertension 2. Hypertension Seizures The patient is awake & alert, mental status improved, no evident expressive aphasia. Right-sided facial droop resolved. Hypertension improved. CT demonstrates stable left temporal haemorrhage w/surrounding edema. Plan: Discussed the plan of care with the patient and Nursing. Discussed the plan of care with the patient's sister over the telephone. Primary management per the Hospitalist. Neuro checks. Stat CT brain for any decline in neuro status. Monitor SBP and keep between 140 to 160 mm Hg, treat as needed. Mechanical DVT prophylaxis. Hold pharmacologic DVT prophylaxis. Stress ulcer prophylaxis. Levetiracetam for seizures. Mobilise patient w/assistance. PT eval & tx. ST eval & tx. (Kwadwo Williamson) Attending Statement The exam, history, and the medical decision-making described in the above note were completed with the assistance of the mid-level provider. I reviewed and agree with the findings presented. I attest that I had a [id number] encounter with the patient on the same day, and personally performed and documented my assessment and findings in the medical record. On examination of the undersigned on 05/14/2017 the patient is awake and relatively alert. Nursing staff present during the examination. She appears somewhat more alert and cooperative today. No significant residual facial paresis noted on today's exam. Moves all extremities with good strength and indicates good sensation light touch all extremities Mental status and neurologic exam improving Continue therapy Mobilize out of bed as tolerated Remains on Keppra due to seizure initially on admission (Siva Campbell MD) Kwadwo Williamson May 14, 2017 16:53 Siva Campbell MD May 14, 2017 21:11
[2017-05-14] MEDS: ACETAMINOPHEN 325 MG TAB PO PRN (20:41)
--- NOTE | 2017-05-14 22:00 | RADRPT ---
EXAM DATE/TIME: 05/14/2017 20:56 [facility] COMPARISON: No previous studies available for comparison. INDICATIONS : Lower back pain. MEDICAL HISTORY : Seizures. Hypertension. SURGICAL HISTORY : None. ENCOUNTER: Initial ACUITY: 4 - 6 days PAIN SCORE: 8/10 LOCATION: lumbar spine. FINDINGS: Approximate 4 mm anterolisthesis L4-5 is seen without spondylolysis. Moderate degree of facet hypertr ophy is present at L4-5 and L5-S1 bilaterally. There is osteopenia without any compression deformity. CONCLUSION: Grade I degenerative anterolisthesis L4-5. Lala England MD on May 14, 2017 at 21:57 Board Certified Radiologist. This report was verified electronically.
--- NOTE | 2017-05-14 22:01 | RADRPT ---
EXAM DATE/TIME: 05/14/2017 20:56 [facility] COMPARISON: No previous studies available for comparison. INDICATIONS : Left hip pain. MEDICAL HISTORY : Seizures. Hypertension. SURGICAL HISTORY : None. ENCOUNTER: Initial ACUITY: 4 - 6 days PAIN SCORE: 5/10 LOCATION: Left hip. FINDINGS: No definite fractures, or dislocations are identified. No definite lytic or sclerotic lesion is seen . The joint spaces are well maintained. CONCLUSION: Unremarkable study. Lala England MD on May 14, 2017 at 21:58 Board Certified Radiologist. This report was verified electronically.
--- NOTE | 2017-05-14 22:02 | RADRPT ---
EXAM DATE/TIME: 05/14/2017 20:56 [facility] COMPARISON: HIP LEFT (AP&LAT 2/3VWS) W AP PELVIS, May 14, 2017, 20:56. INDICATIONS : Right hip pain. MEDICAL HISTORY : Seizures. Hypertension. SURGICAL HISTORY : None. ENCOUNTER: Initial ACUITY: 4 - 6 days PAIN SCORE: 6/10 LOCATION: Right hip. FINDINGS: There is a questionable subtle fracture of the femoral neck superolaterally. CONCLUSION: Questionable subtle femoral neck fracture could be further characterized with noncontrast CT examinat ion. Lala England MD on May 14, 2017 at 21:59 Board Certified Radiologist. This report was verified electronically.
[2017-05-14] MEDS: CHLORHEXIDINE GLUCONATE 2 % 1 PACK (2 CLOTHS) TOP SCH (22:17)
[2017-05-15] VITALS (9 sets, daily range): BP systolic 130–168; BP diastolic 76–100; PULSE 55–78; RESP 16–20; TEMP 98.8–100.5; O2SAT 94–98
[2017-05-15] MEDS: cloNIDine HCL 0.2 MG TAB PO SCH (05:00)
[2017-05-15 05:55] LABS: BASOPHIL % 0.3 % (0.0-2.0); EOSINOPHIL # 0.1 TH/MM3 (0-0.4); EOSINOPHIL % 1.3 % (0.0-4.0); HEMATOCRIT 32.2 % (35.0-46.0); HEMOGLOBIN 11.1 GM/DL (11.6-15.3); LYMPH % 17.9 % (9.0-44.0); LYMPHOCYTE # 1.1 TH/MM3 (1.0-4.8); MEAN CELL VOLUME 92.1 FL (80.0-100.0); MEAN CORPUSCULAR HEMOGLOBIN 31.8 PG (27.0-34.0); MEAN CORPUSCULAR HGB CONC 34.6 % (32.0-36.0); MEAN PLATELET VOLUME 8.2 FL (7.0-11.0); MONO % 14.5 % (0.0-8.0); MONOCYTE # 0.9 TH/MM3 (0-0.9); PLATELET COUNT 193 TH/MM3 (150-450); RED CELL DISTRIBUTION WIDTH 13.5 % (11.6-17.2); WHITE BLOOD COUNT 6.1 TH/MM3 (4.0-11.0)
[2017-05-15 06:21] LABS: BICARBONATE 25.5 MEQ/L (21.0-32.0); CALCIUM 8.5 MG/DL (8.5-10.1); CREATININE 0.71 MG/DL (0.50-1.00); MAGNESIUM 1.9 MG/DL (1.5-2.5)
[2017-05-15] MEDS: FAMOTIDINE 20 MG TAB PO SCH ×2 (08:29→22:40)
[2017-05-15] MEDS: DOCUSATE SODIUM 50 MG/SENNA 8.6 MG TAB PO SCH ×2 (08:30→21:00)
[2017-05-15] MEDS: chlordiazePOXIDE 25 MG CAP PO SCH (08:30)
[2017-05-15] MEDS: levETIRAcetam 500 MG TAB PO SCH ×2 (08:30→22:40)
[2017-05-15] MEDS: SODIUM CHLORIDE 0.9% FLUSH 10 ML FLUSH IV FLUSH SCH ×2 (08:41→21:00)
[2017-05-15] MEDS ORDERED: cloNIDine HCL 0.1 MG TAB PO PRN (09:30)
[2017-05-15] MEDS: NIFEdipine 60 MG SUSTAINED RELEASE TAB PO SCH ×2 (10:35→22:40)
--- NOTE | 2017-05-15 10:49 | RADRPT ---
EXAM DATE/TIME: 05/15/2017 09:49 [facility] COMPARISON: No previous studies available for comparison. INDICATIONS : Cough. MEDICAL HISTORY : Seizures. Hypertension. SURGICAL HISTORY : None. ENCOUNTER: Subsequent ACUITY: 4 - 6 days PAIN SCORE: 0/10 LOCATION: Bilateral chest FINDINGS: The cardiac silhouette is enlarged in transverse diameter. The aortic knob is prominent with tortuosi ty of the descending thoracic aorta. There is linear atelectasis versus scar on the left. There is no evidence of pneumonia. No pleural effusions are identified. CONCLUSION: 1. Subsegmental atelectasis versus scar on the left. Westley Lopez MD on May 15, 2017 at 10:45 Board Certified Radiologist. This report was verified electronically.
--- NOTE | 2017-05-15 11:19 | RADRPT ---
EXAM DATE/TIME: 05/15/2017 10:42 [facility] COMPARISON: HIP RIGHT (AP&LAT 2/3VWS) WO AP PELVIS, May 14, 2017, 20:56. INDICATIONS : Right hip pain with possible fall. RADIATION DOSE: 26.38 CTDIvol (mGy) MEDICAL HISTORY : Cardiovascular disease. Cerebrovascular disease. Hypertension. SURGICAL HISTORY : Partial colectomy ENCOUNTER: Initial ACUITY: 1 day PAIN SCALE: 2/10 LOCATION: Right pelvis TECHNIQUE: Volumetric scanning of the hip was performed. Using automated exposure control and adjustment of the mA and/or kV according to patient size, radiation dose was kept as low as reasonably achievable to o btain optimal diagnostic quality images. DICOM format image data is available electronically for rev iew and comparison. FINDINGS: No definite fracture is seen for technique. The area of questioned fracture involving the right femoral neck on the patient's radiograph corresponds to hypertrophic changes at this site and there i s moderate degenerative arthritis in the right hip joint. CONCLUSION: Moderate to severe osteoarthritis right hip joint without evidence for fracture. Lala England MD on May 15, 2017 at 11:15 Board Certified Radiologist. This report was verified electronically.
[2017-05-15] MEDS: MORPHINE SULFATE 2 MG/ML INJ IV PUSH PRN ×2 (15:24→19:42)
--- NOTE | 2017-05-15 15:28 | HHI.PR ---
Subjective Remarks RN reports patient becomes lethargic after Librium given Objective Vitals Vital Signs Date Time Temp Pulse Resp B/P (MAP) Pulse Ox O2 Delivery O2 Flow Rate FiO2 05/15/17 12:08 98.9 59 20 159/100 (119) 97 05/15/17 07:38 98.8 57 20 168/98 (121) 97 05/15/17 05:43 55 05/15/17 03:05 59 05/15/17 01:15 75 05/15/17 00:13 99.2 59 16 136/87 (103) 98 05/14/17 20:00 101.6 67 20 170/94 (119) 94 05/14/17 16:38 18 05/14/17 16:33 98.1 54 20 94/65 (75) 98 05/14/17 16:00 61 05/15/17 05/15/17 05/16/17 15:00 23:00 07:00 # Voids 1 Result Diagram: 05/15/17 0449 05/15/17 0449 Other Results Laboratory Tests Test 05/15/17 04:49 05/15/17 13:42 White Blood Count 6.1 TH/MM3 Red Blood Count 3.50 MIL/MM3 Hemoglobin 11.1 GM/DL Hematocrit 32.2 % Mean Corpuscular Volume 92.1 FL Mean Corpuscular Hemoglobin 31.8 PG Mean Corpuscular Hemoglobin Concent 34.6 % Red Cell Distribution Width 13.5 % Platelet Count 193 TH/MM3 Mean Platelet Volume 8.2 FL Neutrophils (%) (Auto) 66.0 % Lymphocytes (%) (Auto) 17.9 % Monocytes (%) (Auto) 14.5 % Eosinophils (%) (Auto) 1.3 % Basophils (%) (Auto) 0.3 % Neutrophils # (Auto) 4.0 TH/MM3 Lymphocytes # (Auto) 1.1 TH/MM3 Monocytes # (Auto) 0.9 TH/MM3 Eosinophils # (Auto) 0.1 TH/MM3 Basophils # (Auto) 0.0 TH/MM3 CBC Comment DIFF FINAL Differential Comment Blood Urea Nitrogen 12 MG/DL Creatinine 0.71 MG/DL Random Glucose 102 MG/DL Calcium Level 8.5 MG/DL Magnesium Level 1.9 MG/DL Sodium Level 142 MEQ/L Potassium Level 3.6 MEQ/L Chloride Level 109 MEQ/L Carbon Dioxide Level 25.5 MEQ/L Anion Gap 8 MEQ/L Estimat Glomerular Filtration Rate 103 ML/MIN Urine Color YELLOW Urine Turbidity HAZY Urine pH 5.5 Urine Specific [place] 1.018 Urine Protein 30 mg/dL Urine Glucose (UA) TRACE mg/dL Urine Ketones 40 mg/dL Urine Occult Blood MOD Urine Nitrite NEG Urine Bilirubin NEG Urine Urobilinogen LESS THAN 2.0 MG/DL Urine Leukocyte Esterase NEG Urine RBC 9 /hpf Urine WBC 3 /hpf Urine Squamous Epithelial Cells 3 /hpf Urine Uric Acid Crystals OCC /hpf Urine Bacteria OCC /hpf Urine Mucus FEW /lpf Microscopic Urinalysis Comment CULT NOT INDICATED Imaging Last Impressions Head CT 05/11/17 1000 Signed Impressions: Service Date/Time: Thursday, May 11, 2017 10:50 - CONCLUSION: Persistent left temporal focal hemorrhage with some surrounding edema. Rich Lott MD Neck CTA 05/10/172013 Signed Impressions: Service Date/Time: Wednesday, May 10, 2017 20:19 - CONCLUSION: Normal examination. Lala England MD Head CTA 05/10/172013 Signed Impressions: Service Date/Time: Wednesday, May 10, 2017 20:19 - CONCLUSION: Normal examination. Lala England MD Objective Remarks GENERAL: Well-nourished, well-developed patient. CARDIOVASCULAR: Regular rate and rhythm RESPIRATORY: Breath sounds equal bilaterally. GASTROINTESTINAL: Abdomen soft, non-tender, nondistended. BS active. MUSCULOSKELETAL: No cyanosis, or edema. Well perfused. NEURO EXAM: A&O 3 able to follow commands. speech slow A/P Problem List: (1) Hemorrhagic cerebrovascular accident (CVA) ICD Codes: I61.9 - Nontraumatic intracerebral hemorrhage, unspecified Plan: Hemorrhagic stroke - Due to uncontrolled hypertension - No surgical intervention indicated at this time, NS Dr. Campbell - s/p Mannitol 1 g/kg IV 1 - Coags profile negative except slightly low fibrinogen - SBP goal less than 140-160 - BP fluctuating on Clonidine 0.2 mg PO Q8H. Will DC scheduled clonidine - start nifedipine XL 60 mg PO daily - clonidine 0.1 MG PO as needed - Neuro checks per unit protocol - Drug screen negative - PT and OT eval and treat as tolerated - Physical therapy recommending rehabilitation placement at time of discharge - As needed Ativan when necessary for agitation DVT GI prophylaxis - HILARY/SCDs - No pharmacological DVT prophylaxis due to acute ICH - Pepcid - MAXIMUM TEMPERATURE overnight 05/14 101.6, - chest x-ray (05/15)segmental atelectasis versus scar on the left. Incentive spirometry every hour while awake - Urinalysis pending Plan to DC to Rehab once cleared by Neurosurgery (2) HTN (hypertension) ICD Codes: I10 - Essential (primary) hypertension Plan: - Nicardipine drip initially which has been weaned to DC - BP fluctuating on Clonidine 0.2 mg PO Q8H. Will DC scheduled clonidine - start nifedipine XL 60 mg PO daily - clonidine 0.1 MG PO as needed (3) Seizure ICD Codes: R56.9 - Unspecified convulsions Plan: - Due to above - Keppra loaded in the ED, Continue Keppra 1 g every 12 hours, changed to PO 05/13 - Ativan when necessary - Patient on Librium due to concerns of ETOH abuse. Patient denies ETOH use and appears sedated. Will decrease Librium to BID- continue to wean Librium (4) Bilateral hip pain ICD Codes: M25.551 - Pain in right hip; M25.552 - Pain in left hip Plan: bilateral hip and back pain X ray L hip: No definite fractures, or dislocations are identified. No definite lytic or sclerotic lesion is seen. The joint space is well maintained X ray Right hip: Questionable subtle femoral neck fracture could be further characterized with noncontrast CT exam Orthopedic surgery consultation CT right hip without contrast: Moderate to severe osteoarthritis right hip joint without evidence of fracture Assessment and Plan Patient examined. Assessment and plan formulated with Patience Somers PA-C. I agree with the above. Patience Somers May 15, 2017 15:28 Roger Santillan DO May 18, 2017 11:27
[2017-05-15 15:57] LABS: URINE COLOR ND (YELLW/STRAW)
[2017-05-15 15:58] LABS: GLUCOSE,URINE ND mg/dL (NEG); KETONE, URINE ND mg/dL (NEG); PH, URINE ND (5.0-8.5)
[2017-05-15 15:59] LABS: BILIRUBIN, URINE ND (NEG); BLOOD, URINE ND (NEG); HYALINE CAST, URINE ND /lpf (RARE); MUCUS URINE ND /lpf (OCC); NITRITE,URINE ND (NEG); URINE LEUKOCYTE ESTERASE ND (NEG)
[2017-05-15 16:00] LABS: SQUAMOUS EPITHELIAL CELL URINE ND /hpf (0-5)
[2017-05-15 16:01] LABS: BACTERIA, URINE ND /hpf; URIC ACID CRYSTALS, URINE ND /hpf
--- NOTE | 2017-05-15 16:09 | PD.CONS ---
HPI Service Orthopedic Surgeons Consult Requested By Primary Care Physician Unknown Admission Diagnosis L parietal intracranial hemorrhage Diagnoses: (1) Hemorrhagic cerebrovascular accident (CVA) Diagnosis: Principal (2) HTN (hypertension) Diagnosis: Secondary (3) Seizure Diagnosis: Secondary (4) Bilateral hip pain Diagnosis: Secondary Chief Complaint: Hip pain History of Present Illness 50 year old female admitted as a stroke alert due to a history of expressive aphasia that began sometime prior to arrival. CT scan of the head revealed acute hemorrhagic stroke in the left anterior temporal lobe. Since admission patient has suffered seizures. Orthopedics was consult did for reported bilateral hip pain and suspicion for femoral neck fracture. Currently, patient denies hip pain. She reports mild right shoulder pain after trying to pull herself up in bed. She denies any trauma since admission. Review of Systems Constitutional: DENIES: Fever Endocrine: DENIES: Polyuria Eyes: DENIES: Blurred vision Ears, nose, mouth, throat: DENIES: Throat pain Respiratory: DENIES: Cough Cardiovascular: DENIES: Chest pain Gastrointestinal: DENIES: Abdominal pain Genitourinary: DENIES: Urinary incontinence Musculoskeletal: COMPLAINS OF: Joint pain, Muscle aches, DENIES: Back pain Integumentary: DENIES: Rash Hematologic/lymphatic: DENIES: Bruising Immunologic/allergic: DENIES: Eczema Neurologic: DENIES: Abnormal gait Psychiatric: DENIES: Anxiety Past Family Social History Past Medical History Hypertension, stroke Past Surgical History Previous partial colectomy Reported Medications see full list Allergies: Coded Allergies: No Known Allergies (Unverified , 05/10/17) Active Ordered Medications Current Medications Medications (Trade) Dose Ordered Sig/Areli Route Start Time Stop Time Status Last Admin (NS Flush) 2 ml UNSCH PRN IV FLUSH 05/10/17 21:00 (NS Flush) 2 ml BID IV FLUSH 05/10/17 21:00 05/15/17 08:41 (Tylenol) 650 mg Q6H PRN PO 05/10/17 21:00 05/14/17 20:41 (Morphine Inj) 2 mg Q2H PRN IV PUSH 05/10/17 21:45 05/15/17 15:24 (Pepcid) 20 mg Q12HR PO 05/10/17 21:00 05/15/17 08:29 (Ativan Inj) 1 mg Q1H PRN IV PUSH 05/10/17 21:00 05/12/17 20:02 (Duoneb Neb) 1 ampule Q2HR NEB PRN INH 05/10/17 21:00 Miscellaneous Information 1 Q361D XX 05/10/17 21:00 (Chlorhexidine 2% Cloth) 3 pack Taper DAILY@04 TOP 05/11/17 04:00 05/07/18 03:59 (Chlorhexidine 2% Cloth) 3 pack UNSCH PRN TOP 05/10/17 21:00 ([place]ira-Colace) 1 tab BID PO 05/10/17 21:00 05/15/17 08:30 (Milk Of Magnesia Liq) 30 ml Q12H PRN PO 05/10/17 21:00 (Senokot) 17.2 mg Q12H PRN PO 05/10/17 21:00 (Dulcolax Supp) 10 mg DAILY PRN RECTAL 05/10/17 21:00 (Lactulose Liq) 30 ml DAILY PRN PO 05/10/17 21:00 (Trandate Inj) 10 mg Q4H PRN IV PUSH 05/10/17 21:00 05/11/17 14:58 (Apresoline Inj) 20 mg Q4H PRN IV PUSH 05/10/17 21:00 05/12/17 16:14 (Keppra) 1,000 mg Q12HR PO 05/13/17 21:00 05/15/17 08:30 (Procardia Xl) 60 mg Q12HR PO 05/15/17 09:30 05/15/17 10:35 (Catapres) 0.1 mg Q6H PRN PO 05/15/17 09:30 (Librium) 12.5 mg BID PO 05/15/17 21:00 UNV Reported Meds & Active Scripts Active Active Prescriptions or Reported Medications Unobtainable Family History Noncontributory Social History Denies alcohol use Physical Exam Vital Signs Vital Signs Date Time Temp Pulse Resp B/P (MAP) Pulse Ox O2 Delivery O2 Flow Rate FiO2 05/15/17 15:20 130/80 (97) 05/15/17 12:08 98.9 59 20 159/100 (119) 97 05/15/17 07:38 98.8 57 20 168/98 (121) 97 05/15/17 05:43 55 05/15/17 03:05 59 05/15/17 01:15 75 05/15/17 00:13 99.2 59 16 136/87 (103) 98 05/14/17 20:00 101.6 67 20 170/94 (119) 94 05/14/17 16:38 18 05/14/17 16:33 98.1 54 20 94/65 (75) 98 Physical Exam Awake, alert, no acute distress Normocephalic Pupils equal No JVD Moist mucous membranes Nonlabored respirations Regular rate Soft abdomen Bilateral lower extremities: No significant tenderness palpation about the hips. Negative logroll. Patient actually stands during exam with one assist without discomfort. Patient is neurovascular intact distally. Sensation appears intact. Brisk cap refill Right upper extremity: Mild tenderness over posterior scapula and rotator cuff muscles. Patient allows full passive range of motion of shoulder with no discomfort. Patient is neurovascular intact distally. Sensation appears intact. Radial pulses palpable. Left upper extremity: No tenderness palpation or deformities. Full active range of motion and strength throughout. Neurovascular intact distally. Radial pulse palpable. No rash Normal affect Laboratory Laboratory Tests Test 05/15/17 04:49 05/15/17 13:42 White Blood Count 6.1 Red Blood Count 3.50 Hemoglobin 11.1 Hematocrit 32.2 Mean Corpuscular Volume 92.1 Mean Corpuscular Hemoglobin 31.8 Mean Corpuscular Hemoglobin Concent 34.6 Red Cell Distribution Width 13.5 Platelet Count 193 Mean Platelet Volume 8.2 Neutrophils (%) (Auto) 66.0 Lymphocytes (%) (Auto) 17.9 Monocytes (%) (Auto) 14.5 Eosinophils (%) (Auto) 1.3 Basophils (%) (Auto) 0.3 Neutrophils # (Auto) 4.0 Lymphocytes # (Auto) 1.1 Monocytes # (Auto) 0.9 Eosinophils # (Auto) 0.1 Basophils # (Auto) 0.0 CBC Comment DIFF FINAL Differential Comment Blood Urea Nitrogen 12 Creatinine 0.71 Random Glucose 102 Calcium Level 8.5 Magnesium Level 1.9 Sodium Level 142 Potassium Level 3.6 Chloride Level 109 Carbon Dioxide Level 25.5 Anion Gap 8 Estimat Glomerular Filtration Rate 103 Urine Color Urine Turbidity Urine pH Urine Specific [place] Urine Protein Urine Glucose (UA) Urine Ketones Urine Occult Blood Urine Nitrite Urine Reducing Substances Urine Bilirubin Urine Urobilinogen Urine Leukocyte Esterase Urine RBC Urine WBC Urine Squamous Epithelial Cells Urine Uric Acid Crystals Urine Bacteria Urine Hyaline Casts Urine Mucus Microscopic Urinalysis Comment Result Diagram: 05/15/17 0449 05/15/17 0449 Imaging Last 48 hours Impressions Lower Extremity CT 05/15/17 0000 Signed Impressions: Service Date/Time: May 10:42 - CONCLUSION: Moderate to severe osteoarthritis right hip joint without evidence for fracture. Lala England MD Chest X-Ray 05/15/17 0000 Signed Impressions: Service Date/Time: May 09:49 - CONCLUSION: 1. Subsegmental atelectasis versus scar on the left. Westley Lopez MD Lumbar Spine X-Ray 05/14/17 0000 Signed Impressions: Service Date/Time: Sunday, May 14, 2017 20:56 - CONCLUSION: Grade I degenerative anterolisthesis L4-5. Lala England MD Hip and Pelvis X-Ray 05/14/17 0000 Signed Impressions: Service Date/Time: Sunday, May 14, 2017 20:56 - CONCLUSION: Unremarkable study. Lala England MD Hip X-Ray 05/14/17 0000 Signed Impressions: Service Date/Time: Sunday, May 14, 2017 20:56 - CONCLUSION: Questionable subtle femoral neck fracture could be further characterized with noncontrast CT examination. Lala England MD Assessment & Plan Assessment and Plan Patient is a 56-year-old female who was admitted after hemorrhagic stroke with concern for possible femoral neck fracture, with negative CAT scan At this time I discussed with the patient that she has no evidence of left or right hip fractures on CAT scan. She does have some moderate osteoarthritis. Currently, she denies any hip pain. She is standing with one assist and still denies hip pain. She does report mild right shoulder pain that has only been going on for approximately 1 hour she tried to pull herself up in bed. She denies any trauma to this area. I discussed with the patient that I do believe this is likely just a muscle strain and she can use heat or ice to help with the symptoms. She does not need any precautions. No plan for orthopedic intervention. No need for orthopedic follow-up upon discharge. Rhonda Bethea MD May 15, 2017 16:09
--- NOTE | 2017-05-15 16:45 | RADRPT ---
EXAM DATE/TIME: 05/15/2017 15:37 [facility] COMPARISON: CHEST SINGLE AP, May 15, 2017, 9:49. INDICATIONS : Right scapula pain, pulled arm reaching for something MEDICAL HISTORY : Seizures. Hypertension SURGICAL HISTORY : None. ENCOUNTER: Initial ACUITY: 1 day PAIN SCORE: 8/10 LOCATION: Right scapula FINDINGS: The humeral head appears well situated within the glenoid fossa. The bony mineralization of the scapu la is within normal limits. No acute fracture or destructive lesion is seen. CONCLUSION: 1. No acute bony abnormality of the scapula identified. Lucho Salmon MD on May 15, 2017 at 16:43 Board Certified Radiologist. This report was verified electronically.
[2017-05-15] MEDS: ACETAMINOPHEN 325 MG TAB PO PRN ×2 (16:56→22:40)
--- NOTE | 2017-05-15 18:58 | HHI.NSPN ---
History Chief Complaint: Left hip pain. Interval History No new problems reported. The patient denies significant headache or dizziness. No nausea. Complains of right scapular pain, left hip pain. Patient had a right hip x- rays suspicious for femoral neck fracture with CT scan right lower extremity ordered per orthopedics. Exam Results Vital Signs Date Time Temp Pulse Resp B/P (MAP) Pulse Ox O2 Delivery O2 Flow Rate FiO2 05/15/17 15:20 130/80 (97) 05/15/17 12:08 98.9 59 20 97 05/13/17 07:00 Room Air 05/12/17 08:42 1.00 05/12/17 08:42 21 Intake and Output 05/15/17 05/15/17 05/16/17 08:00 16:00 00:00 Intake Total 660 ml Balance 660 ml Physical Examination GENERAL: Awake and alert, appears relatively comfortable although complaining of right shoulder and left hip pain HEENT: No facial edema or ecchymosis MUSCULOSKELETAL: No significant lower extremity edema. Moderate tenderness over the right lateral hip. Mild tenderness right upper scapular region, otherwise good shoulder range of motion NEUROLOGICAL: AA&O x3. Speech is soft and slow but appropriate. CN II-XII appear grossly intact, no evident facial droop. Sensation intact to light touch to all extremities. Moves all extremities with moderate strength to command. Lab, Micro, Other Results Right scapula x-ray report reviewed. Negative for fracture. Lower extremity CT scan reviewed, negative for fracture. Scapular X-Ray 05/15/17 0000 Signed Impressions: Service Date/Time: May 15:37 - CONCLUSION: 1. No acute bony abnormality of the scapula identified. Lucho Salmon MD Lower Extremity CT 05/15/17 0000 Signed Impressions: Service Date/Time: May 10:42 - CONCLUSION: Moderate to severe osteoarthritis right hip joint without evidence for fracture. Lala England MD Chest X-Ray 05/15/17 0000 Signed Impressions: Service Date/Time: May 09:49 - CONCLUSION: 1. Subsegmental atelectasis versus scar on the left. Westley Lopez MD Medical Decision Making Impression and Plan Impression: 1. Left temporal intracranial hemorrhage. Likely hypertensive in origin 2. Hypertension 3. Possible seizures Plan: Findings were discussed with patient today. Her mental status and speech has significantly improved No significant focal neurologic deficit. She is stable for discharge from neurosurgery standpoint with continued inpatient versus outpatient rehabilitation. No neurosurgery follow-up necessary at this point Siva Campbell MD May 15, 2017 18:58
[2017-05-15] MEDS ORDERED: chlordiazePOXIDE 25 MG CAP PO SCH (21:00)
[2017-05-16] VITALS (11 sets, daily range): BP systolic 124–147; BP diastolic 76–88; PULSE 60–79; RESP 17–18; TEMP 98.1–99.9; O2SAT 96–98
[2017-05-16 00:05] LABS: BACTERIA, URINE RARE /hpf; BILIRUBIN, URINE NEG (NEG); BLOOD, URINE NEG (NEG); GLUCOSE,URINE NEG (NEG); KETONE, URINE NEG (NEG); MUCUS URINE FEW /lpf (OCC); NITRITE,URINE NEG (NEG); PH, URINE 5.5 (5.0-8.5); SQUAMOUS EPITHELIAL CELL URINE <1 /hpf (0-5); URINE COLOR YELLOW (YELLW/STRAW); URINE LEUKOCYTE ESTERASE NEG (NEG)
[2017-05-16] MEDS: CHLORHEXIDINE GLUCONATE 2 % 1 PACK (2 CLOTHS) TOP SCH ×2 (01:09→22:05)
[2017-05-16] MEDS: levETIRAcetam 500 MG TAB PO SCH ×2 (09:06→22:04)
[2017-05-16] MEDS: FAMOTIDINE 20 MG TAB PO SCH ×2 (09:06→22:05)
[2017-05-16] MEDS: SODIUM CHLORIDE 0.9% FLUSH 10 ML FLUSH IV FLUSH SCH ×2 (09:06→22:05)
[2017-05-16] MEDS: NIFEdipine 60 MG SUSTAINED RELEASE TAB PO SCH ×2 (09:06→22:04)
[2017-05-16] MEDS: DOCUSATE SODIUM 50 MG/SENNA 8.6 MG TAB PO SCH ×2 (09:06→22:04)
[2017-05-16] MEDS: MORPHINE SULFATE 2 MG/ML INJ IV PUSH PRN ×2 (09:18→22:04)
[2017-05-16 10:03] LABS: TROPONIN I LESS THAN 0.02 NG/ML (0.02-0.05)
--- NOTE | 2017-05-16 18:01 | HHI.PR ---
Subjective Remarks Patient reports no further chest pain. Patient describes more of a right shoulder pain. Patient also c/o weakness and difficult ambulating Objective Vitals Vital Signs Date Time Temp Pulse Resp B/P (MAP) Pulse Ox O2 Delivery O2 Flow Rate FiO2 05/16/17 16:56 99.2 77 18 124/79 (94) 98 05/16/17 12:28 98.1 79 18 135/79 (97) 97 05/16/17 12:00 74 05/16/17 09:23 18 05/16/17 08:16 98.3 67 18 147/88 (107) 97 05/16/17 08:00 68 05/16/17 04:00 99.1 64 17 137/84 (101) 96 05/16/17 00:00 99.4 60 18 126/76 (93) 97 05/15/17 20:45 69 05/15/17 20:00 100.5 78 18 135/76 (95) 94 05/16/17 05/16/17 05/17/17 15:00 23:00 07:00 Intake Total 480 ml Balance 480 ml Intake Oral 480 ml # Voids 2 # Bowel Movements 1 Result Diagram: 05/15/17 0449 05/15/17 0449 Other Results Laboratory Tests Test 05/15/17 04:49 05/15/17 13:42 05/15/17 22:16 05/16/17 09:30 White Blood Count 6.1 TH/MM3 Red Blood Count 3.50 MIL/MM3 Hemoglobin 11.1 GM/DL Hematocrit 32.2 % Mean Corpuscular Volume 92.1 FL Mean Corpuscular Hemoglobin 31.8 PG Mean Corpuscular Hemoglobin Concent 34.6 % Red Cell Distribution Width 13.5 % Platelet Count 193 TH/MM3 Mean Platelet Volume 8.2 FL Neutrophils (%) (Auto) 66.0 % Lymphocytes (%) (Auto) 17.9 % Monocytes (%) (Auto) 14.5 % Eosinophils (%) (Auto) 1.3 % Basophils (%) (Auto) 0.3 % Neutrophils # (Auto) 4.0 TH/MM3 Lymphocytes # (Auto) 1.1 TH/MM3 Monocytes # (Auto) 0.9 TH/MM3 Eosinophils # (Auto) 0.1 TH/MM3 Basophils # (Auto) 0.0 TH/MM3 CBC Comment DIFF FINAL Differential Comment Blood Urea Nitrogen 12 MG/DL Creatinine 0.71 MG/DL Random Glucose 102 MG/DL Calcium Level 8.5 MG/DL Magnesium Level 1.9 MG/DL Sodium Level 142 MEQ/L Potassium Level 3.6 MEQ/L Chloride Level 109 MEQ/L Carbon Dioxide Level 25.5 MEQ/L Anion Gap 8 MEQ/L Estimat Glomerular Filtration Rate 103 ML/MIN Urine Color YELLOW Urine Turbidity CLEAR Urine pH 5.5 Urine Specific [place] 1.013 Urine Protein mg/dL NEG mg/dL Urine Glucose (UA) mg/dL NEG mg/dL Urine Ketones mg/dL NEG mg/dL Urine Occult Blood NEG Urine Nitrite NEG Urine Reducing Substances Urine Bilirubin NEG Urine Urobilinogen MG/DL LESS THAN 2.0 MG/DL Urine Leukocyte Esterase NEG Urine RBC /hpf 1 /hpf Urine WBC /hpf 1 /hpf Urine Squamous Epithelial Cells /hpf <1 /hpf Urine Uric Acid Crystals /hpf Urine Bacteria /hpf RARE /hpf Urine Hyaline Casts /lpf Urine Mucus /lpf FEW /lpf Microscopic Urinalysis Comment CULT NOT INDICATED Total Creatine Kinase 129 U/L Creatine Kinase MB LESS THAN 0.5 NG/ML Troponin I LESS THAN 0.02 NG/ML Imaging Last Impressions Head CT 05/11/17 1000 Signed Impressions: Service Date/Time: Thursday, May 11, 2017 10:50 - CONCLUSION: Persistent left temporal focal hemorrhage with some surrounding edema. Rich Lott MD Neck CTA 05/10/172013 Signed Impressions: Service Date/Time: Wednesday, May 10, 2017 20:19 - CONCLUSION: Normal examination. Lala England MD Head CTA 05/10/172013 Signed Impressions: Service Date/Time: Wednesday, May 10, 2017 20:19 - CONCLUSION: Normal examination. Lala England MD Objective Remarks GENERAL: Well-nourished, well-developed patient. appears weak CARDIOVASCULAR: Regular rate and rhythm RESPIRATORY: Breath sounds equal bilaterally. GASTROINTESTINAL: Abdomen soft, non-tender, nondistended. BS active. MUSCULOSKELETAL: No cyanosis, or edema. Well perfused. NEURO EXAM: The patient has mild right-sided facial droop. She is spontaneously moving all extremities with 5 over 5 strength. speech slow A/P Problem List: (1) Hemorrhagic cerebrovascular accident (CVA) ICD Codes: I61.9 - Nontraumatic intracerebral hemorrhage, unspecified Plan: Hemorrhagic stroke - Due to uncontrolled hypertension - No surgical intervention indicated at this time, NS Dr. Campbell - s/p Mannitol 1 g/kg IV 1 - Coags profile negative except slightly low fibrinogen - SBP goal less than 140-160 - BP fluctuating on Clonidine 0.2 mg PO Q8H. Will DC scheduled clonidine - start nifedipine XL 60 mg PO daily - clonidine 0.1 MG PO as needed - Neuro checks per unit protocol - Drug screen negative - PT and OT eval and treat as tolerated - Physical therapy recommending rehabilitation placement at time of discharge - As needed Ativan when necessary for agitation DVT GI prophylaxis - HILARY/SCDs - No pharmacological DVT prophylaxis due to acute ICH - Pepcid - MAXIMUM TEMPERATURE overnight 05/14 101.6, - chest x-ray (05/15)segmental atelectasis versus scar on the left. Incentive spirometry every hour while awake - Urinalysis reviewed no culture indicated - Patient cleared for DC by neurosurgery - with complete serial cardiac enzymes, if neg plan to DC to SNF tomorrow (2) HTN (hypertension) ICD Codes: I10 - Essential (primary) hypertension Plan: - Nicardipine drip initially which has been weaned to DC - BP fluctuating on Clonidine 0.2 mg PO Q8H. Will DC scheduled clonidine - start nifedipine XL 60 mg PO daily - clonidine 0.1 MG PO as needed (3) Seizure ICD Codes: R56.9 - Unspecified convulsions Plan: - Due to above - Keppra loaded in the ED, Continue Keppra 1 g every 12 hours, changed to PO 05/13 - Ativan when necessary - Patient on Librium due to concerns of ETOH abuse. Patient denies ETOH use and appears sedated. Will wean Librium- Librium DC'd 05/15/17 (4) Bilateral hip pain ICD Codes: M25.551 - Pain in right hip; M25.552 - Pain in left hip Plan: bilateral hip and back pain X ray L hip: No definite fractures, or dislocations are identified. No definite lytic or sclerotic lesion is seen. The joint space is well maintained X ray Right hip: Questionable subtle femoral neck fracture could be further characterized with noncontrast CT exam Orthopedic surgery consultation CT right hip without contrast: Moderate to severe osteoarthritis right hip joint without evidence of fracture Assessment and Plan Patient examined. Assessment and plan formulated with Patience Somers PA-C. I agree with the above. Patience Somers May 16, 2017 18:01 Roger Santillan DO May 18, 2017 11:28
--- NOTE | 2017-05-16 21:26 | EKG ---
Date Performed: 05/16/2017 Time Performed: 08:51:43 PTAGE: 56 years EKG: Sinus rhythm MODERATE INTRAVENTRICULAR CONDUCTION DELAY MODERATE T-WAVE ABNORMALITY, CONSIDER LATERAL ISCHEMIA AB NORMAL ECG PREVIOUS TRACING : 05/10/2017 21.35 Compared to prior tracing no significant change DOCTOR: Jomar Woodard Interpretating Date/Time 05/16/2017 21:24:46
[2017-05-17] VITALS (12 sets, daily range): BP systolic 128–157; BP diastolic 78–101; PULSE 65–85; RESP 18; TEMP 97.4–98.8; O2SAT 97–99
[2017-05-17 00:48] LABS: TROPONIN I LESS THAN 0.02 NG/ML (0.02-0.05)
[2017-05-17] MEDS: SODIUM CHLORIDE 0.9% FLUSH 10 ML FLUSH IV FLUSH SCH ×2 (07:51→21:24)
[2017-05-17] MEDS: levETIRAcetam 500 MG TAB PO SCH ×2 (07:51→21:25)
[2017-05-17] MEDS: MORPHINE SULFATE 2 MG/ML INJ IV PUSH PRN (07:51)
[2017-05-17] MEDS: DOCUSATE SODIUM 50 MG/SENNA 8.6 MG TAB PO SCH ×2 (07:51→21:00)
[2017-05-17] MEDS: FAMOTIDINE 20 MG TAB PO SCH ×2 (07:51→21:25)
[2017-05-17] MEDS: NIFEdipine 60 MG SUSTAINED RELEASE TAB PO SCH ×2 (07:51→21:25)
[2017-05-17] MEDS ORDERED: LEVE500 PO (11:10)
[2017-05-17] MEDS ORDERED: NIFE60TA8 PO (11:10)
[2017-05-17] MEDS ORDERED: FAMO20TA2 PO (11:10)
[2017-05-17] MEDS ORDERED: CLON.1 PO (11:10)
--- NOTE | 2017-05-17 12:35 | HHI.DS ---
Discharge Summary Admission Date May 10, 2017 at 20:51 Discharge Date: May 17, 2017 Admitting Diagnosis L parietal intracranial hemorrhage (1) Hemorrhagic cerebrovascular accident (CVA) Diagnosis: Principal ICD Codes: I61.9 - Nontraumatic intracerebral hemorrhage, unspecified (2) HTN (hypertension) Diagnosis: Principal ICD Codes: I10 - Essential (primary) hypertension (3) Seizure Diagnosis: Principal ICD Codes: R56.9 - Unspecified convulsions (4) Bilateral hip pain Diagnosis: Principal ICD Codes: M25.551 - Pain in right hip; M25.552 - Pain in left hip Consultants Dr. Bethea, orthopedic surgery Dr. Campbell, Neurosurgery Dr. Jane, neurology Dr. Hodgson, intensive care Procedures none Brief History 50 year old female admitted as a stroke alert due to a history of expressive aphasia that began sometime prior to arrival. According to ambulance services the patient was last seen normal by her neighbors in her hotel at approximately 1900. The patient was noted to have a right facial droop, was noted to be hypertensive with a blood pressure 230/136. The patient was not following commands, however she was spontaneously moving all extremities equally with 5 over 5 strength. As the patient has an expressive aphasia, no history is able to be obtained from the patient. CAT scan of the head revealed acute hemorrhagic stroke in the left anterior temporal lobe. While in the CAT scan for CTA the patient suffered 1 episode of generalized tonic-clonic seizure. CBC/BMP: 05/15/17 0449 05/15/17 0449 Significant Findings Laboratory Tests Test 05/15/17 04:49 05/15/17 13:42 05/15/17 22:16 05/16/17 09:30 Red Blood Count 3.50 MIL/MM3 (4.00-5.30) Hemoglobin 11.1 GM/DL (11.6-15.3) Hematocrit 32.2 % (35.0-46.0) Monocytes (%) (Auto) 14.5 % (0.0-8.0) Chloride Level 109 MEQ/L (98-107) Urine Bacteria RARE /hpf (NONE) Urine Mucus FEW /lpf (OCC) Creatine Kinase MB LESS THAN 0.5 NG/ML Troponin I LESS THAN 0.02 NG/ML Test 05/16/17 18:17 05/16/17 18:18 05/17/17 00:07 Troponin I LESS THAN 0.02 NG/ML LESS THAN 0.02 NG/ML Creatine Kinase MB LESS THAN 0.5 NG/ML LESS THAN 0.5 NG/ML Imaging Last Impressions Scapular X-Ray 05/15/17 0000 Signed Impressions: Service Date/Time: May 15:37 - CONCLUSION: 1. No acute bony abnormality of the scapula identified. Lucho Salmon MD Lower Extremity CT 05/15/17 0000 Signed Impressions: Service Date/Time: May 10:42 - CONCLUSION: Moderate to severe osteoarthritis right hip joint without evidence for fracture. Lala England MD Chest X-Ray 05/15/17 0000 Signed Impressions: Service Date/Time: May 09:49 - CONCLUSION: 1. Subsegmental atelectasis versus scar on the left. Westley Lopez MD Lumbar Spine X-Ray 05/14/17 0000 Signed Impressions: Service Date/Time: Sunday, May 14, 2017 20:56 - CONCLUSION: Grade I degenerative anterolisthesis L4-5. Lala England MD Hip and Pelvis X-Ray 05/14/17 0000 Signed Impressions: Service Date/Time: Sunday, May 14, 2017 20:56 - CONCLUSION: Unremarkable study. Lala England MD Hip X-Ray 05/14/17 0000 Signed Impressions: Service Date/Time: Sunday, May 14, 2017 20:56 - CONCLUSION: Questionable subtle femoral neck fracture could be further characterized with noncontrast CT examination. Lala England MD Head CT 05/11/17999 Signed Impressions: Service Date/Time: Thursday, May 11, 2017 10:50 - CONCLUSION: Persistent left temporal focal hemorrhage with some surrounding edema. Rich Lott MD Neck CTA 05/10/172013 Signed Impressions: Service Date/Time: Wednesday, May 10, 2017 20:19 - CONCLUSION: Normal examination. Lala England MD Head CTA 05/10/172013 Signed Impressions: Service Date/Time: Wednesday, May 10, 2017 20:19 - CONCLUSION: Normal examination. Lala England MD PE at Discharge GENERAL: Well-nourished, well-developed patient. appears weak CARDIOVASCULAR: Regular rate and rhythm RESPIRATORY: Breath sounds equal bilaterally. GASTROINTESTINAL: Abdomen soft, non-tender, nondistended. BS active. MUSCULOSKELETAL: No cyanosis, or edema. Well perfused. NEURO EXAM: The patient has mild right-sided facial droop. She is spontaneously moving all extremities with 5 over 5 strength. speech slow Hospital Course Hemorrhagic stroke - Due to uncontrolled hypertension - No surgical intervention indicated at this time, NS Dr. Campbell - s/p Mannitol 1 g/kg IV 1 - Coags profile negative except slightly low fibrinogen - SBP goal less than 140-160 - BP fluctuating on Clonidine 0.2 mg PO Q8H. Will DC scheduled clonidine - start nifedipine XL 60 mg PO daily - clonidine 0.1 MG PO as needed - Neuro checks per unit protocol - Drug screen negative - PT and OT eval and treat as tolerated - Physical therapy recommending rehabilitation placement at time of discharge DVT GI prophylaxis - HILARY/SCDs - No pharmacological DVT prophylaxis due to acute ICH - Pepcid - MAXIMUM TEMPERATURE overnight 05/14 101.6, - chest x-ray (05/15)segmental atelectasis versus scar on the left. Incentive spirometry every hour while awake - Urinalysis reviewed no culture indicated - Patient cleared for DC by neurosurgery - Pt discharged to SNF for continued physical therapy and rehabilitation HTN (hypertension) - Nicardipine drip initially which has been weaned to DC - BP fluctuating on Clonidine 0.2 mg PO Q8H. Will DC scheduled clonidine - start nifedipine XL 60 mg PO daily - clonidine 0.1 MG PO as needed Seizure - Due to above - Keppra loaded in the ED, Continue Keppra 1 g every 12 hours, changed to PO 05/13 - Ativan when necessary - Patient on Librium due to concerns of ETOH abuse. Patient denies ETOH use and appears sedated. Will wean Librium- Librium DC'd 05/15/17 Bilateral hip pain bilateral hip and back pain X ray L hip: No definite fractures, or dislocations are identified. No definite lytic or sclerotic lesion is seen. The joint space is well maintained X ray Right hip: Questionable subtle femoral neck fracture could be further characterized with noncontrast CT exam Orthopedic surgery consultation CT right hip without contrast: Moderate to severe osteoarthritis right hip joint without evidence of fracture Chest pain serial cardiac enzymes x 3 neg chest pain located more in the right shoulder started after moving herself up in bed worse with certain arm movement. appears to be muscular skeletal in nature - serial cardiac enzymes were negative Pt Condition on Discharge: Stable Discharge Disposition: Discharge to SNF Discharge Instructions DIET: Follow Instructions for: Heart Healthy Diet Speech Therapy-Diet Recommends: Pureed, [place] Thickened Liquids Activities you can perform: See Additionl Instruction Other Activity Instructions: OOB with assistance Follow up Referrals: Neurology - 2 Weeks with Darleen Jane MD PCP Follow-up - 1 Week New Medications: Clonidine (Catapres) 0.1 Mg Tab 0.1 MG PO Q6H PRN for SBP>160, DBP>90, #30 TAB 0 Refills Famotidine (Famotidine) 20 Mg Tab 20 MG PO Q12HR for stomach, #60 TAB 0 Refills Levetiracetam (Keppra) 500 Mg Tab 1000 MG PO Q12HR for seizure prevention, #60 TAB 0 Refills Nifedipine ER 24 HR (Nifedipine ER 24 HR) 60 Mg Tab 60 MG PO Q12HR for blood pressure, #60 TAB 0 Refills Additional Information Patient examined. Assessment and plan formulated with Patience Somers PA-C. I agree with the above. Patience Somers May 17, 2017 12:35 Roger Santillan DO May 22, 2017 00:43
--- NOTE | 2017-05-17 16:16 | HHI.PR ---
Subjective Remarks Patient resting in bed continues to have slow speech reports feeling well today, looking forward to going to rehab to get stronger Objective Vitals Vital Signs Date Time Temp Pulse Resp B/P (MAP) Pulse Ox O2 Delivery O2 Flow Rate FiO2 05/17/17 15:57 98.4 79 18 132/78 (96) 99 05/17/17 14:08 73 05/17/17 11:43 97.9 75 18 142/90 (107) 99 05/17/17 08:00 73 05/17/17 07:46 97.7 66 18 144/94 (111) 97 05/17/17 04:40 65 05/17/17 04:00 97.4 75 18 132/85 (101) 97 05/17/17 02:08 72 05/17/17 00:00 98.8 72 18 128/79 (95) 97 05/16/17 23:10 97 05/16/17 21:00 70 05/16/17 20:00 99.9 74 18 144/87 (106) 97 05/16/17 16:56 99.2 77 18 124/79 (94) 98 05/17/17 05/17/17 05/18/17 15:00 23:00 07:00 # Voids 3 Result Diagram: 05/15/17 0449 05/15/17 0449 Other Results Laboratory Tests Test 05/15/17 04:49 05/15/17 13:42 05/15/17 22:16 05/16/17 09:30 White Blood Count 6.1 TH/MM3 Red Blood Count 3.50 MIL/MM3 Hemoglobin 11.1 GM/DL Hematocrit 32.2 % Mean Corpuscular Volume 92.1 FL Mean Corpuscular Hemoglobin 31.8 PG Mean Corpuscular Hemoglobin Concent 34.6 % Red Cell Distribution Width 13.5 % Platelet Count 193 TH/MM3 Mean Platelet Volume 8.2 FL Neutrophils (%) (Auto) 66.0 % Lymphocytes (%) (Auto) 17.9 % Monocytes (%) (Auto) 14.5 % Eosinophils (%) (Auto) 1.3 % Basophils (%) (Auto) 0.3 % Neutrophils # (Auto) 4.0 TH/MM3 Lymphocytes # (Auto) 1.1 TH/MM3 Monocytes # (Auto) 0.9 TH/MM3 Eosinophils # (Auto) 0.1 TH/MM3 Basophils # (Auto) 0.0 TH/MM3 CBC Comment DIFF FINAL Differential Comment Blood Urea Nitrogen 12 MG/DL Creatinine 0.71 MG/DL Random Glucose 102 MG/DL Calcium Level 8.5 MG/DL Magnesium Level 1.9 MG/DL Sodium Level 142 MEQ/L Potassium Level 3.6 MEQ/L Chloride Level 109 MEQ/L Carbon Dioxide Level 25.5 MEQ/L Anion Gap 8 MEQ/L Estimat Glomerular Filtration Rate 103 ML/MIN Urine Color YELLOW Urine Turbidity CLEAR Urine pH 5.5 Urine Specific [place] 1.013 Urine Protein mg/dL NEG mg/dL Urine Glucose (UA) mg/dL NEG mg/dL Urine Ketones mg/dL NEG mg/dL Urine Occult Blood NEG Urine Nitrite NEG Urine Reducing Substances Urine Bilirubin NEG Urine Urobilinogen MG/DL LESS THAN 2.0 MG/DL Urine Leukocyte Esterase NEG Urine RBC /hpf 1 /hpf Urine WBC /hpf 1 /hpf Urine Squamous Epithelial Cells /hpf <1 /hpf Urine Uric Acid Crystals /hpf Urine Bacteria /hpf RARE /hpf Urine Hyaline Casts /lpf Urine Mucus /lpf FEW /lpf Microscopic Urinalysis Comment CULT NOT INDICATED Total Creatine Kinase 129 U/L Creatine Kinase MB LESS THAN 0.5 NG/ML Troponin I LESS THAN 0.02 NG/ML Test 05/16/17 18:17 05/16/17 18:18 05/17/17 00:07 Troponin I LESS THAN 0.02 NG/ML LESS THAN 0.02 NG/ML Total Creatine Kinase 107 U/L 105 U/L Creatine Kinase MB LESS THAN 0.5 NG/ML LESS THAN 0.5 NG/ML Thyroid Stimulating Hormone 3rd Gen 1.480 uIU/ML Imaging Last Impressions Head CT 05/11/17 1000 Signed Impressions: Service Date/Time: Thursday, May 11, 2017 10:50 - CONCLUSION: Persistent left temporal focal hemorrhage with some surrounding edema. Rich Lott MD Neck CTA 05/10/172013 Signed Impressions: Service Date/Time: Wednesday, May 10, 2017 20:19 - CONCLUSION: Normal examination. Lala England MD Head CTA 05/10/172013 Signed Impressions: Service Date/Time: Wednesday, May 10, 2017 20:19 - CONCLUSION: Normal examination. Lala England MD Objective Remarks GENERAL: Well-nourished, well-developed patient. appears weak CARDIOVASCULAR: Regular rate and rhythm RESPIRATORY: Breath sounds equal bilaterally. GASTROINTESTINAL: Abdomen soft, non-tender, nondistended. BS active. MUSCULOSKELETAL: No cyanosis, or edema. Well perfused. NEURO EXAM: The patient has mild right-sided facial droop. She is spontaneously moving all extremities with 5 over 5 strength. speech slow Procedures none A/P Problem List: (1) Hemorrhagic cerebrovascular accident (CVA) ICD Codes: I61.9 - Nontraumatic intracerebral hemorrhage, unspecified Plan: Hemorrhagic stroke - Due to uncontrolled hypertension - No surgical intervention indicated at this time, NS Dr. Campbell - s/p Mannitol 1 g/kg IV 1 - Coags profile negative except slightly low fibrinogen - SBP goal less than 140-160 - BP fluctuating on Clonidine 0.2 mg PO Q8H. Will DC scheduled clonidine - start nifedipine XL 60 mg PO daily - clonidine 0.1 MG PO as needed - Neuro checks per unit protocol - Drug screen negative - PT and OT eval and treat as tolerated - Physical therapy recommending rehabilitation placement at time of discharge DVT GI prophylaxis - HILARY/SCDs - No pharmacological DVT prophylaxis due to acute ICH - Pepcid - MAXIMUM TEMPERATURE overnight 05/14 101.6, - chest x-ray (05/15)segmental atelectasis versus scar on the left. Incentive spirometry every hour while awake - Urinalysis reviewed no culture indicated - Patient cleared for DC by neurosurgery await CM for placement (2) HTN (hypertension) ICD Codes: I10 - Essential (primary) hypertension Plan: HTN (hypertension) - Nicardipine drip initially which has been weaned to DC - BP fluctuating on Clonidine 0.2 mg PO Q8H. Will DC scheduled clonidine - start nifedipine XL 60 mg PO daily - clonidine 0.1 MG PO as needed (3) Seizure ICD Codes: R56.9 - Unspecified convulsions Plan: Seizure - Due to above - Keppra loaded in the ED, Continue Keppra 1 g every 12 hours, changed to PO 05/13 - Ativan when necessary - Patient on Librium due to concerns of ETOH abuse. Patient denies ETOH use and appears sedated. Will wean Librium- Librium DC'd 05/15/17 (4) Bilateral hip pain ICD Codes: M25.551 - Pain in right hip; M25.552 - Pain in left hip Plan: Bilateral hip pain bilateral hip and back pain X ray L hip: No definite fractures, or dislocations are identified. No definite lytic or sclerotic lesion is seen. The joint space is well maintained X ray Right hip: Questionable subtle femoral neck fracture could be further characterized with noncontrast CT exam Orthopedic surgery consultation CT right hip without contrast: Moderate to severe osteoarthritis right hip joint without evidence of fracture (5) Chest pain ICD Codes: R07.9 - Chest pain, unspecified Status: Resolved Plan: Chest pain- resolved serial cardiac enzymes x 3 neg chest pain located more in the right shoulder started after moving herself up in bed worse with certain arm movement. appears to be muscular skeletal in nature Assessment and Plan Patient examined. Assessment and plan formulated with Patience Somers PA-C. I agree with the above. Patience Somers May 17, 2017 16:15 Roger Santillan DO May 18, 2017 11:28
[2017-05-17] MEDS: ACETAMINOPHEN/HYDROcodone 325 MG/5 MG TAB PO PRN (21:29)
[2017-05-18] VITALS (11 sets, daily range): BP systolic 121–160; BP diastolic 81–95; PULSE 56–73; RESP 17–18; TEMP 97.8–98.4; O2SAT 97–100
[2017-05-18] MEDS: CHLORHEXIDINE GLUCONATE 2 % 1 PACK (2 CLOTHS) TOP SCH (04:00)
[2017-05-18] MEDS: levETIRAcetam 500 MG TAB PO SCH (07:56)
[2017-05-18] MEDS: FAMOTIDINE 20 MG TAB PO SCH (07:56)
[2017-05-18] MEDS: DOCUSATE SODIUM 50 MG/SENNA 8.6 MG TAB PO SCH (07:56)
[2017-05-18] MEDS: NIFEdipine 60 MG SUSTAINED RELEASE TAB PO SCH (07:56)
[2017-05-18] MEDS: SODIUM CHLORIDE 0.9% FLUSH 10 ML FLUSH IV FLUSH SCH (07:56)
--- NOTE | 2017-05-18 11:31 | HHI.PR ---
Subjective Remarks No new complaints. Pt still have difficulties ambulating tends to lean backwards. Objective Vitals Vital Signs Date Time Temp Pulse Resp B/P (MAP) Pulse Ox O2 Delivery O2 Flow Rate FiO2 05/18/17 10:00 98 21 05/18/17 08:53 64 05/18/17 07:51 98.2 56 18 136/84 (101) 100 05/18/17 05:23 97.8 72 17 160/92 (114) 100 05/18/17 00:30 98.4 68 17 148/95 (112) 97 05/18/17 00:18 58 05/17/17 20:19 85 05/17/17 20:00 98.8 81 18 157/101 (119) 98 05/17/17 17:32 85 05/17/17 15:57 98.4 79 18 132/78 (96) 99 05/17/17 14:08 73 05/17/17 11:43 97.9 75 18 142/90 (107) 99 Result Diagram: 05/15/17 0449 05/15/17 0449 Imaging Last Impressions Head CT 05/11/17 1000 Signed Impressions: Service Date/Time: Thursday, May 11, 2017 10:50 - CONCLUSION: Persistent left temporal focal hemorrhage with some surrounding edema. Rich Lott MD Neck CTA 05/10/172013 Signed Impressions: Service Date/Time: Wednesday, May 10, 2017 20:19 - CONCLUSION: Normal examination. Lala England MD Head CTA 05/10/172013 Signed Impressions: Service Date/Time: Wednesday, May 10, 2017 20:19 - CONCLUSION: Normal examination. Lala England MD Objective Remarks GENERAL: Well-nourished, well-developed patient. appears weak CARDIOVASCULAR: Regular rate and rhythm RESPIRATORY: Breath sounds equal bilaterally. GASTROINTESTINAL: Abdomen soft, non-tender, nondistended. BS active. MUSCULOSKELETAL: No cyanosis, or edema. Well perfused. NEURO EXAM: The patient has mild right-sided facial droop. She is spontaneously moving all extremities with 5 over 5 strength. Procedures none A/P Problem List: (1) Hemorrhagic cerebrovascular accident (CVA) ICD Codes: I61.9 - Nontraumatic intracerebral hemorrhage, unspecified Plan: Hemorrhagic stroke - Due to uncontrolled hypertension - No surgical intervention indicated at this time, NS Dr. Campbell - s/p Mannitol 1 g/kg IV 1 - Coags profile negative except slightly low fibrinogen - SBP goal less than 140-160 - BP fluctuating on Clonidine 0.2 mg PO Q8H. Will DC scheduled clonidine - start nifedipine XL 60 mg PO daily - clonidine 0.1 MG PO as needed - Neuro checks per unit protocol - Drug screen negative - PT and OT eval and treat as tolerated - Physical therapy recommending rehabilitation placement at time of discharge DVT GI prophylaxis - HILARY/SCDs - No pharmacological DVT prophylaxis due to acute ICH - Pepcid - MAXIMUM TEMPERATURE overnight 05/14 101.6, - chest x-ray (05/15)segmental atelectasis versus scar on the left. Incentive spirometry every hour while awake - Urinalysis reviewed no culture indicated - Patient cleared for DC by neurosurgery 05/18/17 - Case Mgmt continued to work on safe discharge - Discharge orders written 05/17/17 - Pt has NO new complaints. - PT changed to 7 days a week - discharge to SNF once arrangements have been made. (2) HTN (hypertension) ICD Codes: I10 - Essential (primary) hypertension Plan: HTN (hypertension) - Nicardipine drip initially which has been weaned to DC - BP fluctuating on Clonidine 0.2 mg PO Q8H. Will DC scheduled clonidine - start nifedipine XL 60 mg PO daily - clonidine 0.1 MG PO as needed (3) Seizure ICD Codes: R56.9 - Unspecified convulsions Plan: Seizure - Due to above - Keppra loaded in the ED, Continue Keppra 1 g every 12 hours, changed to PO 05/13 - Ativan when necessary - Patient on Librium due to concerns of ETOH abuse. Patient denies ETOH use and appears sedated. Will wean Librium- Librium DC'd 05/15/17 (4) Bilateral hip pain ICD Codes: M25.551 - Pain in right hip; M25.552 - Pain in left hip Plan: Bilateral hip pain bilateral hip and back pain X ray L hip: No definite fractures, or dislocations are identified. No definite lytic or sclerotic lesion is seen. The joint space is well maintained X ray Right hip: Questionable subtle femoral neck fracture could be further characterized with noncontrast CT exam Orthopedic surgery consultation CT right hip without contrast: Moderate to severe osteoarthritis right hip joint without evidence of fracture (5) Chest pain ICD Codes: R07.9 - Chest pain, unspecified Status: Resolved Plan: Chest pain- resolved serial cardiac enzymes x 3 neg chest pain located more in the right shoulder started after moving herself up in bed worse with certain arm movement. appears to be muscular skeletal in nature Assessment and Plan Patient examined. Assessment and plan formulated with Patience Somers PA-C. I agree with the above. Roger Santillan DO May 18, 2017 11:31
[2017-05-18] MEDS: ACETAMINOPHEN/HYDROcodone 325 MG/5 MG TAB PO PRN (15:18)
== END 2017-05-18 17:53 | DRG 65 ==
LOC: NEPE 20:11 → EDBD 20:51 → NEDA 20:51 → N03A 23:05 → N05A 05-13 18:34
PROVIDERS: ADMIT Hospitalist; ATTEND Hospitalist
DX: I61.1 Nontraumatic intracerebral hemorrhage in hemisphere, cortical (principal); R47.01 Aphasia; I67.4 Hypertensive encephalopathy; R56.9 Unspecified convulsions; J98.11 Atelectasis; R29.810 Facial weakness; I10 Essential (primary) hypertension; M25.552 Pain in left hip; M25.551 Pain in right hip; R07.89 Other chest pain; M19.90 Unspecified osteoarthritis, unspecified site; D64.9 Anemia, unspecified; Z78.1 Physical restraint status
CPT/HCPCS: 70450; 70496; 70498; 71045; 72110; 73010; 73502; 73700; 80048; 80053; 80307; 81001; 82435; 82550; 82552; 82565; 82947; 83735; 84100; 84132; 84295; 84443; 84484; 84520; 84702; 85025; 85384; 85610; 85730; 86850; 86900; 86901; 87641; 93005; 94150; 95819; 96365; J0360; J1200; J1630; J1953; J2060; J2150; J2270; J7030; J7050; Q9967